=== PATIENT | male | born 1935 | race Caucasian/White ===

== ENCOUNTER 2017-07-30 10:14 | Inpatient (IN) | payer OTHER ==
[~2017-07-30] VITALS: Ht 175.3 cm; Wt 112.0 kg
[~2017-07-30 10:14] MED LIST: ACET-1311 PO; ALBU1AER9 INH; CLOTCRE33 TOP; FLUO0.0543 TD; FURO80TA63 PO; HYDR1CRE TOP; INSDGI SC; INSU70IN2 SC; KETO2SHA5 TOP; MAGNSUS5 PO; MENTOIN TOP; METO25TA56 PO; PRAM1AER PR; RISP1TAB68 PO
--- NOTE | 2017-07-30 11:13 | DIAGNOSTIC IMAGING REPORT ---
CHEST ONE VIEW PORTABLE CLINICAL HISTORY: Shortness of breath. COMPARISON STUDY: Chest radiograph December 25, 2015. FINDINGS: There is no pneumothorax. No definite pleural effusion is noted. Apparent right pleural opacity may reflect extrapleural fat. This is unchanged. Moderate cardiomegaly is unchanged. Apparent hazy left basilar opacity is likely artifactual. There is mild interstitial thickening. IMPRESSION: 1. Mild interstitial thickening. This favors pulmonary vascular congestion/mild pulmonary edema however an infectious process could appear similar. 2. Stable cardiomegaly. Electronically signed by: Modesto Johnston M.D. 07/30/2017 11:12 AM Dictated Date/Time: 07/30/2017 11:10 AM
[2017-07-30 11:25] LABS: BASO % 0.3 %; BASO ABS # 0.02 K/uL (0-0.2); COMPLETE YES; EOS % 2.3 %; HEMATOCRIT 33.1 % (42-52); IG% 0.3 %; MEAN CORPUSCULAR HEMOGLOBIN 33.5 pg (25-34); MEAN CORPUSCULAR HGB CONC 33.5 g/dl (32-36); MEAN PLATELET VOLUME 9.7 fL (7.4-10.4); MONO % 13.8 %; NEUT % 64.3 %; PLATELET COUNT 106 K/uL (130-400); RED BLOOD COUNT 3.31 M/uL (4.7-6.1); WHITE BLOOD COUNT 7.37 K/uL (4.8-10.8)
[2017-07-30 11:42] LABS: CREATININE 2.68 mg/dl (0.60-1.40); POTASSIUM 4.4 mmol/L (3.5-5.1)
[2017-07-30] MEDS ORDERED: ASPIRIN 81 MG CHEW PO STA (11:58)
[2017-07-30] MEDS ORDERED: IPRA1AER2 INH (12:20)
[2017-07-30] MEDS ORDERED: SPIR25TA PO (12:22)
[2017-07-30] MEDS ORDERED: ARTIOIN OPL (12:22)
[2017-07-30] MEDS ORDERED: ACETAMINOPHEN 325 MG TAB PO PRN (13:45)
[2017-07-30] MEDS ORDERED: HydrALAZINE HCL 20 MG/ML VIAL IV. PRN (14:00)
[2017-07-30] MEDS ORDERED: FUROSEMIDE 40 MG/4 ML VIAL ONE (14:01)
[2017-07-30] MEDS ORDERED: INSU70IN2 SC (14:02)
--- NOTE | 2017-07-30 14:31 | History and Physical ---
History & Physical Date & Time of Service: Jul 30, 2017 at 13:26 Chief Complaint: EDEMA Primary Care Physician: Dulce Maria Agustin C.R.N.P. History of Present Illness Mr. Medellin is not a good historian but states that he is here for leg swelling. He denies sob or chest pain. He is audibly wheezing in the room and has a moist sounding cough. I did speak to his sister who is next of kin who confirmed his DNR status and Pmhx of paranoid schizophrenia, DMII and CKD V. He has been on hospice in the past in 2014 for failing kidneys. ROS Constitutional: no chills, aches, sweats or fever Respiratory: see HPI Cardiac: no chest pain, palpitations, edema, orthopnea or lightheadedness GI: no abdominal pain, nausea, vomiting, diarrhea or constipation : no dysuria or hesitancy Extremities: no joint pain or weakness Skin: no rash Past Medical/Surgical History Medical Problems: (1) Cataract Status: Resolved (2) Hip fracture Status: Resolved (3) Hyperlipidemia Status: Resolved (4) Hypertension Status: Chronic (5) Hypokalemia Status: Resolved (6) Paranoid schizophrenia Status: Chronic (7) Peripheral vascular disease Status: Chronic (8) Type 2 diabetes mellitus Status: Chronic Family History Insignificant due to advanced age Social History Smoking Status: Former Smoker Marital Status: single [facility] status[facility] Occupational Status: retired Immunizations History of Influenza Vaccine: Yes History of Tetanus Vaccine?: Unknown History of Pneumococcal: Unknown History of Hepatitis B Vaccine: Unknown Allergies Coded Allergies: No Known Allergies (Unverified , 07/30/17) Home Medications Scheduled Acetaminophen (Tylenol), 650 MG PO BID PRN Artificial Tears Oph Oint (Lacri-Lube Sop Oph Oint), 0.25-0.5 INCH OPL QAM Clotrimazole W/ Betamethasone (Lotrisone), 1 APPLN TOP BID Fluocinonide 0.05% (Lidex 0.05%), 1 APPLN TD BID Furosemide (Lasix), 40 MG PO BID Hydrocortisone/Pramoxine (Proctofoam Hc), 1 APPLN OR PRN Insulin Glargine (Lantus), 40 UNITS SC DAILY Insulin Isophan/Regular (Novolin 70/30), 20 UNITS SC QAM Insulin Isophan/Regular (Novolin 70/30), 30 UNITS SC QDD Ipratropium-Albuterol (Combivent Respimat), 1 PUFFS INH QID Ketoconazole (Topical) (Nizoral), 1 APPLN TOP 3XWK Menthol-Zinc Oxide (Calmoseptine), 1 APPLN TOP DAILY Metoprolol Tartrate (Lopressor) (Lopressor), 12.5 MG PO BID Risperidone (Risperdal), 0.5 MG PO HS Spironolactone (Aldactone), 25 MG PO QAM Scheduled PRN Hydrocortisone (Topical) (Preparation H Hydrocortis), 1 APPLN TOP TID PRN for hemorrhoid Physical Exam Vital Signs Date Time Temp Pulse Resp B/P (MAP) Pulse Ox O2 Delivery O2 Flow Rate FiO2 07/30/17 13:21 75 07/30/17 12:29 84 22 147/69 95 Room Air 07/30/17 12:13 81 18 149/82 07/30/17 11:19 36.6 83 18 155/88 97 Room Air 07/30/17 10:36 72 07/30/17 10:22 36.6 77 18 166/71 97 Room Air General: no distress Eyes: normal inspection, PERLL Respiratory: chest non tender, coarse bases, expiratory wheezes throughout, no respiratory distress, no accessory muscle use Cardiac: regular rate and rhythm, no rub or gallop, no murmur, +2 pitting edema lower extremities GI/: active bowel sounds, no abd pain or tenderness, soft, non distended Extremities: normal range of motion, normal strength, non tender Neuro/Psych: alert and oriented to person and time, normal mood and affect Skin: reddened lower extremities dry Diagnostics Laboratory Results Results Past 24 Hours Test 07/30/17 11:05 Range/Units White Blood Count 7.37 4.8-10.8 K/uL Red Blood Count 3.31 4.7-6.1 M/uL Hemoglobin 11.1 14.0-18.0 g/dL Hematocrit 33.1 42-52 % Mean Corpuscular Volume 100.0 80-100 fL Mean Corpuscular Hemoglobin 33.5 25-34 pg Mean Corpuscular Hemoglobin Concent 33.5 32-36 g/dl Platelet Count 106 130-400 K/uL Mean Platelet Volume 9.7 7.4-10.4 fL Neutrophils (%) (Auto) 64.3 % Lymphocytes (%) (Auto) 19.0 % Monocytes (%) (Auto) 13.8 % Eosinophils (%) (Auto) 2.3 % Basophils (%) (Auto) 0.3 % Neutrophils # (Auto) 4.74 1.4-6.5 K/uL Lymphocytes # (Auto) 1.40 1.2-3.4 K/uL Monocytes # (Auto) 1.02 0.11-0.59 K/uL Eosinophils # (Auto) 0.17 0-0.5 K/uL Basophils # (Auto) 0.02 0-0.2 K/uL RDW Standard Deviation 49.9 36.4-46.3 fL RDW Coefficient of Variation 13.7 11.5-14.5 % Immature Granulocyte % (Auto) 0.3 % Immature Granulocyte # (Auto) 0.02 0.00-0.02 K/uL Sodium Level 138 136-145 mmol/L Potassium Level 4.4 3.5-5.1 mmol/L Chloride Level 104 98-107 mmol/L Carbon Dioxide Level 27 21-32 mmol/L Anion Gap 7.0 3-11 mmol/L Blood Urea Nitrogen 51 7-18 mg/dl Creatinine 2.68 0.60-1.40 mg/dl Est Creatinine Clear Calc Drug Dose 26.8 ml/min Estimated GFR () 24.6 Estimated GFR (Non- 21.2 BUN/Creatinine Ratio 19.0 10-20 Random Glucose 133 70-99 mg/dl Calcium Level 9.0 8.5-10.1 mg/dl Total Bilirubin 0.4 0.2-1 mg/dl Direct Bilirubin 0.1 0-0.2 mg/dl Aspartate Amino Transf (AST/SGOT) 46 15-37 U/L Alanine Aminotransferase (ALT/SGPT) 49 12-78 U/L Alkaline Phosphatase 92 45-117 U/L Troponin I 0.137 0-0.045 ng/ml Pro-B-Type Natriuretic Peptide 585 0-1800 pg/ml Total Protein 7.1 6.4-8.2 gm/dl Albumin 2.6 3.4-5.0 gm/dl Lipase 298 73-393 U/L Diagnostic Radiology CHEST ONE VIEW PORTABLE CLINICAL HISTORY: Shortness of breath. COMPARISON STUDY: Chest radiograph December 25, 2015. FINDINGS: There is no pneumothorax. No definite pleural effusion is noted. Apparent right pleural opacity may reflect extrapleural fat. This is unchanged. Moderate cardiomegaly is unchanged. Apparent hazy left basilar opacity is likely artifactual. There is mild interstitial thickening. IMPRESSION: 1. Mild interstitial thickening. This favors pulmonary vascular congestion/mild pulmonary edema however an infectious process could appear similar. 2. Stable cardiomegaly. EKG Normal sinus rhythm ST & T wave abnormality, consider lateral ischemia Abnormal ECG When compared with ECG of 25-DEC-2015 12:19, No significant change was found Impression Assessment and Plan Mr. Medellin is an 81 year old man here for CHF exacerbation. Unknown type CHF exacerbation - admit tele - IV lasix, solumedrol, qid nebs and prn, continue spironolactone - strict Is&Os, daily weights - Currently on RA, O2 per protocol. - Echo Elevated trop, EKG abnormality - not currently experiencing chest pain - trend troponins - EKG in the mornings and with CP - consulted cardiology - continue metoprolol - start aspirin CKD V - Creat 2.6, has been has high as 4 in the past - trend prp while diuresing, may need to get nephrology on board DM II - home dose lantus - ss - bsg ac & hs Paranoid Schizophrenia - continue risperdone I personally interviewed and examined the patient. I agree with history of present illness and physical exam mentioned above, I also performed my own history taking and examination. Past medical history and review of system has been obtained by myself I reviewed all pertinent labs and studies Reviewed current medications I discussed and formulated of the assessment and plan mentioned above by Mrs. Maldonadoah Larry Please refer to the Summary mentioned below. General Appearance: not in acute distress Eyes: normal Sclerae, extraocular muscle intact ENT: hearing grossly normal Neck: supple Respiratory/Chest: Decreased air entry bilateral , mild respiratory distress, no accessory muscle use, bilateral scattered rhonchi Cardiovascular: regular rate, rhythm, + systolic murmur Abdomen: non tender, soft, no masses, but appears distended Extremities: +2 edema Neurologic/Psychiatric: Awake alert oriented only to place and person moves all extremities sensation intact cranial nerves II-12 appear to be intact Skin: normal color, warm/dry, no rash 81 years old man with underlying dementia presented to the ED with shortness of breath and lower extremity edema Assessment Acute and chronic CHF unspecified type Shortness of breath/bronchospasm possible cardiac Positive troponin likely demand ischemia Chronic kidney disease stage IV, creatinine still 0.6 baseline Diabetes mellitus type 2 insulin-requiring Paranoid schizophrenia Plan Admit to telemetry Trend troponin Consult property management accountant Obtain 2-D echo Sliding scale Continue home meds Gentle diuresis with close monitoring renal function Calculation of I/O DVT prophylaxis Bronchodilators Darya Torres [facility], [facility] Advanced Directives Existing Advance Directive: No Existing Living Will: No Existing Power of Ict Customer Support Officer: No Existing Health Care Proxy: No Resuscitation Status DO NOT RESUSCITATE (per family and document from last admission) VTE Prophylaxis VTE Risk Assessment Done? Y/N: Yes Risk Level: Moderate Given or contraindicated: Unfractionated heparin SQ
[2017-07-30 15:10] VITALS: BP 177/74; PULSE 77; TEMP 36.4; O2SAT 97; Ht 175.3 cm; Wt 112.0 kg
[2017-07-30] MEDS ORDERED: FUROSEMIDE INJ 40 MG in SYRINGE 0 ML IV ONE (16:00)
[2017-07-30] MEDS ORDERED: GLUCOSE 10 TABS/TUBE PO PRN (16:00)
[2017-07-30] MEDS ORDERED: ALBUT/IPRATROP 3MG/0.5MG NEB 3 ML VIAL INH SCH (16:00)
[2017-07-30] MEDS ORDERED: GLUCAGON FOR INJ 1 MG VIAL SQ PRN (16:00)
[2017-07-30] MEDS ORDERED: METHYLPREDNISOLONE IV 40 MG in SYRINGE 0 ML IV ONE (16:00)
[2017-07-30] MEDS ORDERED: GLUCOSE 40% GEL 15 GM TUBE PO PRN (16:00)
[2017-07-30] MEDS ORDERED: DEXTROSE 50% 50 ML SYR IV PRN (16:00)
--- NOTE | 2017-07-30 16:00 | EMERGENCY ROOM VISIT NOTE ---
History Report prepared by Anna: Dayami Shelton Under the Supervision of: Dr. Casey Wade D.O. First contact with patient: 10:30 Chief Complaint: REFERRED BY DOCTOR Stated Complaint: EDEMA History of Present Illness The patient is a 81 year old male who presents to the Emergency Room with complaints of worsening swelling to his legs. He was brought to the ED via EMS from [facility] where he resides. EMS reports the patient has had swelling of his bilateral legs and was placed on IV Lasix. When the swelling did not improve , his doctor referred him here to the ED. The patient also complains of shortness of breath that is worse with exertion. He denies any chest pain. Additional information is unable to be obtained secondary to patients mental status. Source of History: patient, EMS Onset: AIRPLANE CAPTAIN Position: leg (bilateral) Quality: other (swelling) Timing: worsening Associated Symptoms: + SOB, No chest pain Review of Systems See HPI for pertinent positives & negatives. ROS is limited secondary to patients mental status. Past Medical & Surgical Medical Problems: (1) Cataract (2) CHF exacerbation (3) Hip fracture (4) Hyperlipidemia (5) Hypertension (6) Hypokalemia (7) Paranoid schizophrenia (8) Peripheral vascular disease (9) Type 2 diabetes mellitus Family History Insignificant due to advanced age Social History Smoking Status: Former Smoker Alcohol Use: none Drug Use: none Marital Status: single Housing Status: [facility] Occupation Status: retired Current/Historical Medications Scheduled Acetaminophen (Tylenol), 650 MG PO BID PRN Artificial Tears Oph Oint (Lacri-Lube Sop Oph Oint), 0.25-0.5 INCH OPL QAM Clotrimazole W/ Betamethasone (Lotrisone), 1 APPLN TOP BID Fluocinonide 0.05% (Lidex 0.05%), 1 APPLN TD BID Furosemide (Lasix), 40 MG PO BID Hydrocortisone/Pramoxine (Proctofoam Hc), 1 APPLN OR PRN Insulin Glargine (Lantus), 40 UNITS SC DAILY Insulin Isophan/Regular (Novolin 70/30), 20 UNITS SC QAM Insulin Isophan/Regular (Novolin 70/30), 30 UNITS SC QDD Ipratropium-Albuterol (Combivent Respimat), 1 PUFFS INH QID Ketoconazole (Topical) (Nizoral), 1 APPLN TOP 3XWK Menthol-Zinc Oxide (Calmoseptine), 1 APPLN TOP DAILY Metoprolol Tartrate (Lopressor) (Lopressor), 12.5 MG PO BID Risperidone (Risperdal), 0.5 MG PO HS Spironolactone (Aldactone), 25 MG PO QAM Scheduled PRN Hydrocortisone (Topical) (Preparation H Hydrocortis), 1 APPLN TOP TID PRN for hemorrhoid Allergies Coded Allergies: No Known Allergies (Unverified , 07/30/17) Physical Exam Vital Signs Date Time Temp Pulse Resp B/P (MAP) Pulse Ox O2 Delivery O2 Flow Rate FiO2 07/30/17 13:42 71 22 171/63 97 Room Air 07/30/17 13:21 75 07/30/17 12:29 84 22 147/69 95 Room Air 07/30/17 12:13 81 18 149/82 07/30/17 11:19 36.6 83 18 155/88 97 Room Air 07/30/17 10:36 72 07/30/17 10:22 36.6 77 18 166/71 97 Room Air Physical Exam GENERAL: Sitting up in bed, reserved, intermittently answering questions. EYE EXAM: normal conjunctiva. OROPHARYNX: no exudate, no erythema, lips, buccal mucosa, and tongue normal and mucous membranes are moist NECK: supple, no nuchal rigidity, no adenopathy, non-tender, no JVD LUNGS: Diminished lung sounds bilaterally. Normal chest wall mechanics HEART: no murmurs, S1 normal and S2 normal ABDOMEN: abdomen soft, non-tender, normo-active bowel sounds, no masses, no rebound or guarding. BACK: Back is symmetrical on inspection and there is no deformity, no midline tenderness, no CVA tenderness. SKIN: no rashes and no bruising UPPER EXTREMITIES: upper extremities are grossly normal. LOWER EXTREMITIES: Pitting edema tracking to bilateral hips. NEURO EXAM: Normal sensorium, cranial nerves II-XII grossly intact, normal speech, no gross weakness of arms, no gross weakness of legs. Gross sensation intact. Medical Decision & Procedures ER Provider Diagnostic Interpretation: Radiology results as stated below per my review and the radiologist's interpretation: CHEST ONE VIEW PORTABLE CLINICAL HISTORY: Shortness of breath. COMPARISON STUDY: Chest radiograph December 25, 2015. FINDINGS: There is no pneumothorax. No definite pleural effusion is noted. Apparent right pleural opacity may reflect extrapleural fat. This is unchanged. Moderate cardiomegaly is unchanged. Apparent hazy left basilar opacity is likely artifactual. There is mild interstitial thickening. IMPRESSION: 1. Mild interstitial thickening. This favors pulmonary vascular congestion/mild pulmonary edema however an infectious process could appear similar. 2. Stable cardiomegaly. Electronically signed by: Modesto Johnston M.D. 07/30/2017 11:12 AM Laboratory Results 07/30/17 11:05 Red Blood Count 3.31, Mean Corpuscular Volume 100.0, Mean Corpuscular Hemoglobin 33.5, Mean Corpuscular Hemoglobin Concent 33.5, Mean Platelet Volume 9.7, Neutrophils (%) (Auto) 64.3, Lymphocytes (%) (Auto) 19.0, Monocytes (%) ( Auto) 13.8, Eosinophils (%) (Auto) 2.3, Basophils (%) (Auto) 0.3, Neutrophils # (Auto) 4.74, Lymphocytes # (Auto) 1.40, Monocytes # (Auto) 1.02, Eosinophils # ( Auto) 0.17, Basophils # (Auto) 0.02 07/30/17 11:05 Test 07/30/17 11:05 White Blood Count 7.37 K/uL (4.8-10.8) Red Blood Count 3.31 M/uL (4.7-6.1) Hemoglobin 11.1 g/dL (14.0-18.0) Hematocrit 33.1 % (42-52) Mean Corpuscular Volume 100.0 fL (80-100) Mean Corpuscular Hemoglobin 33.5 pg (25-34) Mean Corpuscular Hemoglobin Concent 33.5 g/dl (32-36) Platelet Count 106 K/uL (130-400) Mean Platelet Volume 9.7 fL (7.4-10.4) Neutrophils (%) (Auto) 64.3 % Lymphocytes (%) (Auto) 19.0 % Monocytes (%) (Auto) 13.8 % Eosinophils (%) (Auto) 2.3 % Basophils (%) (Auto) 0.3 % Neutrophils # (Auto) 4.74 K/uL (1.4-6.5) Lymphocytes # (Auto) 1.40 K/uL (1.2-3.4) Monocytes # (Auto) 1.02 K/uL (0.11-0.59) Eosinophils # (Auto) 0.17 K/uL (0-0.5) Basophils # (Auto) 0.02 K/uL (0-0.2) RDW Standard Deviation 49.9 fL (36.4-46.3) RDW Coefficient of Variation 13.7 % (11.5-14.5) Immature Granulocyte % (Auto) 0.3 % Immature Granulocyte # (Auto) 0.02 K/uL (0.00-0.02) Anion Gap 7.0 mmol/L (3-11) Est Creatinine Clear Calc Drug Dose 26.8 ml/min Estimated GFR () 24.6 Estimated GFR (Non- 21.2 BUN/Creatinine Ratio 19.0 (10-20) Calcium Level 9.0 mg/dl (8.5-10.1) Total Bilirubin 0.4 mg/dl (0.2-1) Direct Bilirubin 0.1 mg/dl (0-0.2) Aspartate Amino Transf (AST/SGOT) 46 U/L (15-37) Alanine Aminotransferase (ALT/SGPT) 49 U/L (12-78) Alkaline Phosphatase 92 U/L (45-117) Troponin I 0.137 ng/ml (0-0.045) Pro-B-Type Natriuretic Peptide 585 pg/ml (0-1800) Total Protein 7.1 gm/dl (6.4-8.2) Albumin 2.6 gm/dl (3.4-5.0) Lipase 298 U/L (73-393) Laboratory results per my review. Medications Administered Medications (Trade) Dose Ordered Sig/Terese Route Start Time Stop Time Status Last Admin Dose Admin Aspirin (Aspirin Chew) 324 mg NOW STAT PO 07/30/17 11:58 07/30/17 11:59 DC 07/30/17 11:58 324 MG ECG Indication: SOB/dyspnea Rate (beats per minute): 74 Rhythm: sinus rhythm Findings: nonspecific-ST abn (Lateral and high lateral leads with flipped T- waves in high lateral leads), left axis deviation Comparison ECG Date: new changes in lateral and high lateral leads when compared to EKG from 12/25/2015 ED Course ED COURSE: Vital signs were reviewed and showed the patient is hypertensive. The patients medical record was reviewed The above diagnostic studies were performed and reviewed. ED treatments and interventions as stated above. 1036: The patient was evaluated in room C6. A complete history and physical examination was performed. 1104: I spoke to Mary at [facility]. She states the patient had significant shortness of breath this morning. His pulse ox was 90 on room air so they called an ambulance to bring him to the ED. 1158: Aspirin 324 mg PO. 1209: I discussed the patients case with Dr. Nava [facility] Hospitalist. The patient will be further evaluated. 1213: I discussed the patients case with Dr. Jimenez [facility] Cardiology. The patient will be further evaluated. 1225: Upon reevaluation, the patient is resting comfortably. I discussed my findings with the patient and he understands and agrees with the treatment plan. Based on the patients age, coexisting illnesses, exam and lab findings the decision to treat as an inpatient was made. The patient remained stable while under my care. The patient will be evaluated for further management. Medical Decision Differential diagnoses includes but is not limited to pneumonia, bronchitis, COPD/Asthma exacerbation, pneumothorax, pulmonary embolism, congestive heart failure, acute coronary syndrome. Patient is an 81-year-old male who presents to ER for [facility]ness [facility] the [facility] which is present for the past several days. Patient is an extremely poor historian and is only able to tell me that he is short of breath. He has no other complaints per him. On exam he does have pitting edema. EKG shows new flipped T waves in the high lateral leads. Chest x-ray supports some vascular congestion. Troponin was elevated. Patient was updated at bedside in regards to his findings. I favor symptoms are likely secondary to failure to cannot be certain due to his limited history. Discussed with cardiology. Patient was admitted to internal medicine for further workup. Medication Reconcilliation Current Medication List: was personally reviewed by me Blood Pressure Screening Patient's blood pressure: Elevated blood pressure Blood pressure disposition: Referred to PCP Consults Time Called: 1207 Consulting Physician: Dr. Nava [facility] Hospitalist Returned Call: 1209 I discussed the patients case with Dr. Nava [facility] Hospitalist. The patient will be further evaluated. Additional Consults: Time Called: 1211 Consulted Physician: Dr. Jimenez [facility] Cardiology Returned Call: 1213 Additional Comments: I discussed the patients case with Dr. Jimenez, [facility] Cardiology. The patient will be further evaluated. Impression Primary Impression: Dyspnea Additional Impressions: Acute electrocardiogram changes CHF exacerbation CKD stage G5/A2, GFR <15 and albumin creatinine ratio 30- 299 mg/g Scribe Attestation The scribe's documentation has been prepared under my direction and personally reviewed by me in its entirety. I confirm that the note above accurately reflects all work, treatment, procedures, and medical decision making performed by me. Departure Information Dispostion Being Evaluated By Hospitalist Maria M Cardenas M.D. (PCP) Patient Instructions [facility] Problem Qualifiers Primary Impression: Dyspnea Dyspnea type: unspecified Qualified Codes: R06.00 - Dyspnea, unspecified Additional Impressions: CHF exacerbation Congestive heart failure type: unspecified congestive heart failure type Qualified Codes: I50.9 - Heart failure, unspecified
[2017-07-30] MEDS: INSULIN ASPART 100 UNITS/ML 3 ML PEN SC SCH ×2 (16:15→20:58)
--- NOTE | 2017-07-30 17:11 | Cardiology Consultation ---
Cardiology Consultation Date of Consultation: Jul 30, 2017. Requesting Physician: Susana Reason for Consultation: NSTEMI Pt evaluation today including: conversation w/ patient, physical exam, chart review, lab review, review of studies, review of inpatient medication list, conversation w/ attending History of Present Illness The patient is an 81-year-old gentleman without a known history of cardiac disease who suffers from paranoid schizophrenia. He is also known to have an element of renal insufficiency. He currently resides at a nursing facility. He was noted recently to have worsening lower extremity edema that did not respond to oral Lasix. He was therefore sent to [facility] for an evaluation. Based on his physical examination and laboratory findings he was admitted for additional treatment. The patient currently claims to be feeling well. He did not verbalize any complaints. He denied chest discomfort or chest pressure. He claims to be an active individual was able to ambulate without limitation and denies any exertional symptoms. He is not perform vigorous exercise. He denies significant breathing trouble. He denies current breathing trouble. He denies any sense of palpitation. He denies any pain in his lower extremities. Claims to be eating well. He denied any dizziness or lightheadedness. He cannot recall having a syncopal episode. Past Medical/Surgical History Paranoid schizophrenia Chronic renal insufficiency stage IV Dementia Diabetes mellitus Family History Insignificant due to advanced age Noncontributory given his advanced age Social History Smoking Status: Former Smoker History of Alcohol Use: No Currently resides at a nursing facility Review of Systems Per HPI. Additional review of systems was difficult to obtain due to his mental illness Allergies Coded Allergies: No Known Allergies (Unverified , 07/30/17) Medications Current Inpatient Medications Medications (Trade) Dose Ordered Sig/Terese Route Start Time Stop Time Status Last Admin Dose Admin Acetaminophen (Tylenol Tab) 650 mg Q4H PRN PO 07/30/17 13:45 08/29/17 13:44 Furosemide 40 mg/ Syringe 4 ml @ 4 mls/min BID IV 07/30/17 21:00 08/29/17 20:59 Albuterol/ Ipratropium (Duoneb) 3 ml QIDR INH 07/30/17 16:00 08/29/17 15:59 Methylprednisolone Sodium Succinate 40 mg/Syringe 0.64 ml @ 1.5 mls/min BID IV 07/30/17 21:00 08/29/17 20:59 Hydralazine HCl (HydrALAZINE INJ) 10 mg Q4H PRN IV. 07/30/17 14:00 08/29/17 13:59 Insulin Aspart (novoLOG ASPART) SLIDING SCALE If C... ACHS SC 07/30/17 16:15 08/29/17 16:14 Artificial Tears (Lacri-Lube Oph Oint) 1 appln QAM OPL 07/31/17 09:00 08/30/17 08:59 Insulin Glargine (Lantus Solostar Pen) 40 units DAILY SC 07/31/17 09:00 08/30/17 08:59 Metoprolol Tartrate (Lopressor Tab) 12.5 mg BID PO 07/30/17 21:00 08/29/17 20:59 Risperidone (Risperdal Tab) 0.5 mg HS PO 07/30/17 21:00 08/29/17 20:59 Spironolactone (Aldactone Tab) 25 mg QAM PO 07/31/17 09:00 08/30/17 08:59 Heparin Sodium (Porcine) (Heparin Sq 5000 Unit/0.5ml) 5,000 unit Q12 SQ 07/30/17 21:00 08/29/17 20:59 UNV Aspirin (Ecotrin Tab) 81 mg QAM PO 07/31/17 09:00 08/30/17 08:59 Glucose (Glucose 40% Gel) 15-30 GRAMS 15 GRAMS... UD PRN PO 07/30/17 16:00 08/29/17 15:59 Glucose (Glucose Chew Tab) 4-8 Tablets 4 Tabl... UD PRN PO 07/30/17 16:00 08/29/17 15:59 Dextrose (Dextrose 50% 50ML Syringe) 25-50ML OF 50% DW IV FOR... UD PRN IV 07/30/17 16:00 08/29/17 15:59 Glucagon (Glucagon Inj) 1 mg UD PRN SQ 07/30/17 16:00 08/29/17 15:59 Miscellaneous (Xopenex/ Atrovent Neb) 1 ea Q6R INH 07/30/17 21:00 08/29/17 20:59 UNV Physical Exam Vital Signs Past 12 Hours Date Time Temp Pulse Resp B/P (MAP) Pulse Ox O2 Delivery O2 Flow Rate FiO2 07/30/17 15:10 36.4 77 20 177/74 97 Room Air 07/30/17 15:10 97 Room Air 07/30/17 14:56 76 20 157/76 94 07/30/17 14:08 73 22 145/68 98 Room Air 07/30/17 13:42 71 22 171/63 97 Room Air 07/30/17 13:21 75 07/30/17 12:29 84 22 147/69 95 Room Air 07/30/17 12:13 81 18 149/82 07/30/17 11:19 36.6 83 18 155/88 97 Room Air 07/30/17 10:36 72 07/30/17 10:22 36.6 77 18 166/71 97 Room Air The patient is alert and oriented. Mood and affect were flat He answered all questions appropriately. HEENT: Pupils are equal and reactive to light and accommodation. Extraocular movements are intact. The sclerae are anicteric. Neuro: Cranial nerves intact Neck: Patient's neck is supple. He has palpable carotid pulses bilaterally without bruits on auscultation. I could not evaluate for jugular venous distention given the redundant nature of his neck tissue. The thyroid is not enlarged. Lungs: Clear to auscultation bilaterally. He has good air movement without use of accessory muscles. No rales wheezes or rhonchi. Cardiac: Heart demonstrates a regular rate and rhythm. Normal S1 and S2. No murmurs on examination. Pulses: The patient has palpable radial pulses bilaterally that are equal in intensity Extremities: There was no evidence of hypoperfusion. There is no cyanosis or clubbing. There is no edema he has moderate bilateral peripheral edema in the lower extremities. There is an element of erythema on the anterior aspect of both legs. Skin: Patient does have an erythematous and raised rash underneath his neck Data Laboratory Results: Last 24 Hours Test 07/30/17 11:05 07/30/17 16:25 07/30/17 16:56 White Blood Count 7.37 K/uL Red Blood Count 3.31 M/uL Hemoglobin 11.1 g/dL Hematocrit 33.1 % Mean Corpuscular Volume 100.0 fL Mean Corpuscular Hemoglobin 33.5 pg Mean Corpuscular Hemoglobin Concent 33.5 g/dl Platelet Count 106 K/uL Mean Platelet Volume 9.7 fL Neutrophils (%) (Auto) 64.3 % Lymphocytes (%) (Auto) 19.0 % Monocytes (%) (Auto) 13.8 % Eosinophils (%) (Auto) 2.3 % Basophils (%) (Auto) 0.3 % Neutrophils # (Auto) 4.74 K/uL Lymphocytes # (Auto) 1.40 K/uL Monocytes # (Auto) 1.02 K/uL Eosinophils # (Auto) 0.17 K/uL Basophils # (Auto) 0.02 K/uL RDW Standard Deviation 49.9 fL RDW Coefficient of Variation 13.7 % Immature Granulocyte % (Auto) 0.3 % Immature Granulocyte # (Auto) 0.02 K/uL Sodium Level 138 mmol/L Potassium Level 4.4 mmol/L Chloride Level 104 mmol/L Carbon Dioxide Level 27 mmol/L Anion Gap 7.0 mmol/L Blood Urea Nitrogen 51 mg/dl Creatinine 2.68 mg/dl Est Creatinine Clear Calc Drug Dose 26.8 ml/min Estimated GFR () 24.6 Estimated GFR (Non- 21.2 BUN/Creatinine Ratio 19.0 Random Glucose 133 mg/dl Calcium Level 9.0 mg/dl Total Bilirubin 0.4 mg/dl Direct Bilirubin 0.1 mg/dl Aspartate Amino Transf (AST/SGOT) 46 U/L Alanine Aminotransferase (ALT/SGPT) 49 U/L Alkaline Phosphatase 92 U/L Troponin I 0.137 ng/ml Pro-B-Type Natriuretic Peptide 585 pg/ml Total Protein 7.1 gm/dl Albumin 2.6 gm/dl Lipase 298 U/L Bedside Glucose 110 mg/dl Imaging: Vascular prominence suggestive of early pulmonary edema EKG: Normal sinus rhythm with T-wave inversions in 1 and aVL Assessment & Plan 1. Edema: Patient certainly has an element of peripheral edema likely some element pulmonary vascular congestion. He is not appear to be overtly symptomatic from a cardiac standpoint but certainly has worsening peripheral edema. He is reported to have a history of a cardiomyopathy that is not well characterized in his medical record. At this point would seem reasonable to attempt more aggressive diuresis with intravenous diuretics. His renal function appears to be close to baseline as he has had much worse renal function in the past. I agree with assessment of his left ventricular function. If he indeed has an element of reduced LV systolic function we could entertain a change from his metoprolol tartrate to succinate. He is not appear to be a good candidate for Hernando inhibition given his renal disease. He is on spironolactone and is generally maintained on an element of loop diuretic as well. His blood pressure is also notably elevated today and he may require more aggressive control of hypertension in order to optimize his cardiac function. Additional recommendations will follow the results of his echocardiogram. 2. Elevated cardiac biomarkers: Patient does have slightly elevated troponin. This may be chronic in nature or related to his chronic renal insufficiency. He does not give a history supportive of an acute coronary event. However, he provide little history in general. His EKG he has some minor T-wave inversions but no signs of overt ischemia. I think we can trend his markers over the course of the evening for better determination on the chronicity. He has been administered aspirin since admission. I do not feel there is any need for systemic anticoagulation based on the objective findings and lack of symptoms currently. Once again, maintaining him on a beta-hira and attempting to optimize his blood pressure control is recommended.
[2017-07-30 17:18] LABS: PROTHROMBIN TIME (PATIENT) 10.8 SECONDS (9.0-12.0)
[2017-07-30 17:35] LABS: CHOLESTEROL/HDL RATIO 3.5
[2017-07-30 18:12] LABS: URINE APPEARANCE CLEAR (CLEAR); URINE BILIRUBIN NEG (NEG); URINE COLOR YELLOW; URINE EPITHELIAL CELL AUTO 0-5 /lpf (0-5); URINE NITRITE NEG (NEG); URINE PH 5.5 (4.5-7.5); URINE SPECIFIC GRAVITY 1.012 (1.000-1.030); UROBILINOGEN NEG (NEG); ZZUR CULT IF INDIC CLEAN CATCH NO
[2017-07-30 18:13] LABS: MANUAL MICROSCOPIC REQUIRED? NO; REVIEW REQ? NO
--- NOTE | 2017-07-30 18:35 | ECHOCARDIOGRAM REPORT ---
*NOTICE TO RECEIVING [employer] This information is strictly Confidential and protected under [place] law. [place] law prohibits you from making any further disclosure of this information unless further disclosure is expressly permitted by the written consent of the person to whom it pertains or is authorized by law. A general authorization for the release of medical or other information is not sufficient for this purpose. Hospital accepts no responsibility if the information is made available to any other person, INCLUDING THE PATIENT. Interpretation Summary * Name: MARY ANNE VALLE Study Date: 07/30/2017 03:42 PM BP: 177/74 mmHg * Patient Location: C.2T\S\S239\S\2 HR: 77 * : 1935 (M/d/y) Gender: Male Height: 69 in * Age: 81 yrs Ethnicity: CA Weight: 257 lb * Ordering Physician: Andie Juarez * Referring Physician: UNKNOWN * Performed By: Lanie Booth RCS * * Reason For Study: CHF * BSA: 2.3 m2 * -- Conclusions -- * Left ventricular systolic function is normal. * Grade I diastolic dysfunction, (abnormal relaxation pattern). * No significant valvular abnormalities Procedure Details * A complete two-dimensional transthoracic echocardiogram was performed (2D, M-mode, Doppler and color flow Doppler). * The study was technically difficult. * There were technical limitations due to patient's supine positioning for imagining and body habitus * A contrast injection of Definity was performed to improve assessment of LV function. * Contrast was injected into an intravenous site in the right arm. * One vial of Definity ultrasound contrast was diluted in normal saline to a total volume of 10 ml. A total of '1' ml of solution was administered during imaging. * Lot # [id number] of Definity utilized for procedure. * Expiration date . * The attending nurse who injected the contrast agent was Jigna Roy RN. Left Ventricle * The left ventricle is normal in size. * There is normal left ventricular wall thickness. * Left ventricular systolic function is normal. * Ejection Fraction = 55-60%. * Grade I diastolic dysfunction, (abnormal relaxation pattern). * The left ventricular wall motion is normal. Right Ventricle * The right ventricle is normal in size and function. Atria * The left atrial size is normal. * Right atrial size is normal. Mitral Valve * The mitral valve is grossly normal. * Significant mitral regurgitation is absent. Tricuspid Valve * The tricuspid valve is not well visualized. * There is mild tricuspid regurgitation. Aortic Valve * The aortic valve is normal in structure and function. * No hemodynamically significant valvular aortic stenosis. * There is no significant aortic regurgitation. Pericardium/Pleural * There is no pericardial effusion. MMode 2D Measurements and Calculations IVSd 1.1 cm IVSs 1.2 cm LVIDd 4.4 cm LVIDs 2.9 cm LVPWd 1.1 cm LVPWs 1.3 cm IVS/LVPW 10 FS 33.8 % EDV(Teich) 89.7 ml ESV(Teich) 33.3 ml EF(Teich) 62.8 % EDV(cubed) 87.7 ml ESV(cubed) 25.4 ml EF(cubed) 71.0 % % IVS thick 7.0 % % LVPW thick 22.4 % LV mass(C)d 167.0 grams LV mass(C)dI 72.7 grams/m\S\2 LV mass(C)s 111.7 grams LV mass(C)sI 48.6 grams/m\S\2 SV(Teich) 56.4 ml SI(Teich) 24.5 ml/m\S\2 SV(cubed) 62.2 ml SI(cubed) 27.1 ml/m\S\2 EDV(MOD-sp4) 149.2 ml ESV(MOD-sp4) 50.4 ml EF(MOD-sp4) 66.2 % EDV(MOD-sp2) 145.2 ml ESV(MOD-sp2) 48.0 ml EF(MOD-sp2) 66.9 % SV(MOD-sp4) 98.8 ml SI(MOD-sp4) 43.0 ml/m\S\2 SV(MOD-sp2) 97.2 ml SI(MOD-sp2) 42.3 ml/m\S\2 Doppler Measurements and Calculations MV E max dionisio 154.7 cm/sec MV A max dionisio 153.2 cm/sec MV E/A 1.0 MV P1/2t max dionisio 159.2 cm/sec MV P1/2t 84.4 msec MVA(P1/2t) 2.6 cm\S\2 MV dec slope 552.3 cm/sec\S\2 MV dec time 0.35 sec Ao V2 max 168.9 cm/sec Ao max PG 11.4 mmHg Ao max PG (full) 5.6 mmHg LV V1 max PG 5.8 mmHg LV V1 max 120.2 cm/sec
[2017-07-30] MEDS: LEVALBUTEROL 1.25MG/0.5ML NEB INH SCH (19:21)
[2017-07-30] MEDS: IPRATROPIUM BROMIDE NEB SOLN 0.02% 2.5 ML VIAL INH SCH (19:21)
[2017-07-30 19:23] VITALS: PULSE 88; O2SAT 98
[2017-07-30] MEDS: RISPERIDONE 0.5 MG TAB PO SCH (20:02)
[2017-07-30] MEDS: FUROSEMIDE INJ 40 MG in SYRINGE 0 ML IV SCH (20:02)
[2017-07-30] MEDS: METHYLPREDNISOLONE IV 40 MG in SYRINGE 0 ML IV SCH (20:02)
[2017-07-30] MEDS: METOPROLOL TARTRATE 25 MG TAB PO SCH (20:03)
[2017-07-30] MEDS: HEPARIN SOD 5000 UNIT/0.5 ML CARP SQ SCH (20:58)
[2017-07-30] MEDS ORDERED: LEVALBUTEROL/IPRATROPIUM NEB INH SCH (21:00)
[2017-07-30 23:43] VITALS: BP 158/68; PULSE 89; TEMP 36.4; O2SAT 94
[2017-07-31] VITALS (11 sets, daily range): BP systolic 132–158; BP diastolic 69–80; PULSE 69–113; TEMP 36.4–37; O2SAT 93–98
[2017-07-31] MEDS: LEVALBUTEROL 1.25MG/0.5ML NEB INH SCH ×4 (01:47→19:03)
[2017-07-31] MEDS: IPRATROPIUM BROMIDE NEB SOLN 0.02% 2.5 ML VIAL INH SCH ×4 (01:47→19:03)
[2017-07-31 06:29] LABS: COMPLETE YES; HEMATOCRIT 32.2 % (42-52); IG% 0.1 %; LYMPH % 6.6 %; LYMPH ABS # 0.48 K/uL (1.2-3.4); MEAN CELL VOLUME 98.5 fL (80-100); MEAN CORPUSCULAR HEMOGLOBIN 33.6 pg (25-34); MEAN CORPUSCULAR HGB CONC 34.2 g/dl (32-36); MEAN PLATELET VOLUME 9.5 fL (7.4-10.4); MONO % 2.5 %; NEUT % 90.8 %; PLATELET COUNT 100 K/uL (130-400); RED BLOOD COUNT 3.27 M/uL (4.7-6.1); WHITE BLOOD COUNT 7.28 K/uL (4.8-10.8)
[2017-07-31] MEDS: INSULIN ASPART 100 UNITS/ML 3 ML PEN SC SCH ×4 (06:55→21:09)
[2017-07-31 07:00] LABS: BUN/CREATININE RATIO 18.7 (10-20); ESTIMATED AVERAGE GLUCOSE 151 mg/dl; HA1C FLAG Normal (Normal); MAGNESIUM 1.9 mg/dl (1.8-2.4); POTASSIUM 4.7 mmol/L (3.5-5.1)
[2017-07-31 07:03] LABS: ALB/GLOB RATIO 0.6 (0.9-2)
[2017-07-31] MEDS: METHYLPREDNISOLONE IV 40 MG in SYRINGE 0 ML IV SCH (08:19)
[2017-07-31] MEDS: FUROSEMIDE INJ 40 MG in SYRINGE 0 ML IV SCH (08:19)
[2017-07-31] MEDS: ARTIFICIAL TEARS OP OINT 3.5 GM TUBE OPL SCH (08:19)
[2017-07-31] MEDS: ASPIRIN 81 MG ECTAB PO SCH (08:20)
[2017-07-31] MEDS: METOPROLOL TARTRATE 25 MG TAB PO SCH ×2 (08:20→21:07)
[2017-07-31] MEDS: SPIRONOLACTONE 25 MG TAB PO SCH (08:20)
[2017-07-31] MEDS: INSULIN GLARGINE SOLOSTAR 100 UNITS/ML 3 ML PEN SC SCH (08:23)
[2017-07-31] MEDS: HEPARIN SOD 5000 UNIT/0.5 ML CARP SQ SCH (08:23)
[2017-07-31 12:30] LABS: BUN/CREATININE RATIO 18.6 (10-20); CALCIUM 9.2 mg/dl (8.5-10.1); CREATININE 3.32 mg/dl (0.60-1.40); POTASSIUM 4.6 mmol/L (3.5-5.1)
[2017-07-31] MEDS ORDERED: HEPARIN IV BOLUS 7,000 UNIT in SYRINGE 0 ML IV SCH (14:15)
[2017-07-31] MEDS ORDERED: METOPROLOL TARTRATE 25 MG TAB PO ONE (14:22)
[2017-07-31] MEDS: HEPARIN 25,000 UNIT/500ML D5W 500 ML IV PRN (14:47)
[2017-07-31 15:19] LABS: BASO % 0.1 %; BASO ABS # 0.01 K/uL (0-0.2); HEMATOCRIT 32.3 % (42-52); IG% 0.4 %; LYMPH % 5.1 %; LYMPH ABS # 0.67 K/uL (1.2-3.4); MEAN CELL VOLUME 99.4 fL (80-100); MEAN CORPUSCULAR HEMOGLOBIN 33.8 pg (25-34); MONO % 4.9 %; NEUT % 89.5 %; PLATELET COUNT 107 K/uL (130-400); RED BLOOD COUNT 3.25 M/uL (4.7-6.1); WHITE BLOOD COUNT 13.01 K/uL (4.8-10.8)
[2017-07-31] MEDS ORDERED: CLOPIDOGREL BISULFATE 300 MG TAB PO STA (15:25)
[2017-07-31 15:29] LABS: INR 1.1 (0.9-1.1); PROTHROMBIN TIME (PATIENT) 11.6 SECONDS (9.0-12.0)
[2017-07-31 15:35] LABS: COMPLETE YES; MEAN CORPUSCULAR HGB CONC 34.1 g/dl (32-36)
--- NOTE | 2017-07-31 18:20 | Hospitalist Progress Note ---
Hospitalist Progress Note Date of Service Jul 31, 2017. (Acacia Teixeira PA-C) Subjective Pt evaluation today including: conversation w/ patient, conversation w/ family (sister over the phone), physical exam, chart review, lab review, review of studies, conversation w/ [employer] sales consultant (Dr. Jimenez - cardiology), review of inpatient medication list Patient seen and evaluated. No acute events overnight. Has remained in normal sinus rhythm with occasional PVCs in rates of 80s to 90s. Upon admission, patient noted to have a mildly elevated troponin of 0.137 which reduced to 0.120 however then increased to 0.325. Due to this slight increase and anterolateral ischemic changes on EKG a fourth troponin was obtained which came back at 6.310. Patient is completely asymptomatic and verbalizes no shortness of breath or chest pain. Stat EKG after this troponin with similar ischemic findings from this morning. Kidney function did slightly increase with diuresis but is currently at a negative balance. Patient is in no acute distress and hemodynamically stable. Implemented a heparin drip, plan to continue beta hira, continue daily aspirin, implement loading dose of Plavix, and will hold on RANDI inhibitor due to chronic kidney disease. Discussed the case with Dr. Jimenez who is in agreement with current plan with no intentions for invasive procedures due to the likelihood of worsening renal function due to contrast with the catheterization. Discussed the case with his sister, she states that she makes decisions on his behalf when necessary. She states that he was on hospice for his kidney disease in 2014 but is function seemed to improve and therefore he was removed from hospice services. She was updated on current events of today and agree with no invasive catheterization. She agrees with medical management and to optimize kidney function. She said dialysis will not be an option for the patient as she feels this will drastically impact his quality of life. She would like to see him return to [facility] when medically optimal. Review of systems appear limited as patient is very short answers and is not very conversational. He denies pain and does not appear in any distress. Constitutional: No fever, No chills Respiratory: No cough, No shortness of breath Cardiovascular: No chest pain Abdomen: No pain, No nausea, No vomiting, No diarrhea Musculoskeletal: No swelling, No calf pain Male : No dysuria Heme: No abnormal bleeding/bruising (Acacia Teixeira PA-C) Medications Current Inpatient Medications Medications (Trade) Dose Ordered Sig/Terese Route Start Time Stop Time Status Last Admin Dose Admin Acetaminophen (Tylenol Tab) 650 mg Q4H PRN PO 07/30/17 13:45 08/29/17 13:44 Furosemide 40 mg/ Syringe 4 ml @ 4 mls/min BID IV 07/30/17 21:00 08/29/17 20:59 07/31/17 08:19 4 MLS/MIN Methylprednisolone Sodium Succinate 40 mg/Syringe 0.64 ml @ 1.5 mls/min BID IV 07/30/17 21:00 08/29/17 20:59 07/31/17 08:19 1.5 MLS/MIN Hydralazine HCl (HydrALAZINE INJ) 10 mg Q4H PRN IV. 07/30/17 14:00 08/29/17 13:59 Insulin Aspart (novoLOG ASPART) SLIDING SCALE If C... ACHS SC 07/30/17 16:15 08/29/17 16:14 07/31/17 17:09 9 UNITS Artificial Tears (Lacri-Lube Oph Oint) 1 appln QAM OPL 07/31/17 09:00 08/30/17 08:59 07/31/17 08:19 1 APPLN Insulin Glargine (Lantus Solostar Pen) 40 units DAILY SC 07/31/17 09:00 08/30/17 08:59 07/31/17 08:23 40 UNITS Metoprolol Tartrate (Lopressor Tab) 12.5 mg BID PO 07/30/17 21:00 08/29/17 20:59 07/31/17 08:20 12.5 MG Risperidone (Risperdal Tab) 0.5 mg HS PO 07/30/17 21:00 08/29/17 20:59 07/30/17 20:02 0.5 MG Spironolactone (Aldactone Tab) 25 mg QAM PO 07/31/17 09:00 18 08:59 07/31/17 08:20 25 MG Aspirin (Ecotrin Tab) 81 mg QAM PO 07/31/17 09:00 08/30/17 08:59 07/31/17 08:20 81 MG Glucose (Glucose 40% Gel) 15-30 GRAMS 15 GRAMS... UD PRN PO 07/30/17 16:00 08/29/17 15:59 Glucose (Glucose Chew Tab) 4-8 Tablets 4 Tabl... UD PRN PO 07/30/17 16:00 08/29/17 15:59 Dextrose (Dextrose 50% 50ML Syringe) 25-50ML OF 50% DW IV FOR... UD PRN IV 07/30/17 16:00 08/29/17 15:59 Glucagon (Glucagon Inj) 1 mg UD PRN SQ 07/30/17 16:00 08/29/17 15:59 Ipratropium [place] (Atrovent 0.02% 0.5MG/2.5ML Neb) 0.5 mg Q6R INH 07/30/17 21:00 08/29/17 20:59 07/31/17 14:13 0.5 MG Levalbuterol (Xopenex 1.25MG/ 0.5ML Neb) 1.25 mg Q6R INH 07/30/17 21:00 08/29/17 20:59 07/31/17 14:13 1.25 MG Atorvastatin Calcium (Lipitor Tab) 40 mg HS PO 07/31/17 21:00 08/30/17 20:59 Heparin Sodium/ Dextrose 500 ml @ 31 mls/hr Q16H8M PRN IV 07/31/17 14:15 08/30/17 14:14 07/31/17 14:47 31 MLS/HR Clopidogrel Bisulfate (plAVix TAB) 75 mg QAM PO 08/01/17 09:00 08/31/17 08:59 (Acacia Teixeira, TUC) Objective Vital Signs Date Time Temp Pulse Resp B/P (MAP) Pulse Ox O2 Delivery O2 Flow Rate FiO2 07/31/17 16:18 36.9 86 18 148/80 (102) 95 07/31/17 16:00 Room Air 07/31/17 14:13 87 16 97 Room Air 07/31/17 12:00 Room Air 07/31/17 11:25 91 94 07/31/17 10:55 36.6 89 18 132/74 (93) 96 Room Air 07/31/17 08:00 Room Air 07/31/17 07:56 36.8 113 18 146/77 (100) 94 Room Air 07/31/17 07:04 86 18 98 Room Air 07/31/17 04:00 Room Air 07/31/17 02:49 36.9 94 22 136/71 (92) 93 Room Air 07/31/17 01:49 96 18 97 Room Air 07/31/17 00:00 Room Air 07/30/17 23:43 36.4 89 22 158/68 (98) 94 Room Air 07/30/17 20:00 Room Air 07/30/17 19:23 88 16 98 Room Air (Acacia Teixeira PA-C) Physical Exam General Appearance: WD/WN, no apparent distress Eyes: sclerae normal Neck: supple, no JVD, trachea midline Respiratory/Chest: lungs clear, no respiratory distress, no accessory muscle use, + decreased breath sounds Cardiovascular: regular rate, rhythm Abdomen: normal bowel sounds, non tender, soft Extremities: + swelling (1+ pitting edema bilaterally, however has more of a lymphedema appearance) Neurologic/Psychiatric: alert Skin: normal color, warm/dry (Acacia Teixeira, EMELI-C) Laboratory Results Last 24 Hours Test 07/30/17 20:20 07/30/17 22:45 07/31/17 06:12 07/31/17 06:34 Bedside Glucose 238 mg/dl 211 mg/dl Troponin I 0.325 ng/ml White Blood Count 7.28 K/uL Red Blood Count 3.27 M/uL Hemoglobin 11.0 g/dL Hematocrit 32.2 % Mean Corpuscular Volume 98.5 fL Mean Corpuscular Hemoglobin 33.6 pg Mean Corpuscular Hemoglobin Concent 34.2 g/dl Platelet Count 100 K/uL Mean Platelet Volume 9.5 fL Neutrophils (%) (Auto) 90.8 % Lymphocytes (%) (Auto) 6.6 % Monocytes (%) (Auto) 2.5 % Eosinophils (%) (Auto) 0.0 % Basophils (%) (Auto) 0.0 % Neutrophils # (Auto) 6.61 K/uL Lymphocytes # (Auto) 0.48 K/uL Monocytes # (Auto) 0.18 K/uL Eosinophils # (Auto) 0.00 K/uL Basophils # (Auto) 0.00 K/uL RDW Standard Deviation 48.5 fL RDW Coefficient of Variation 13.5 % Immature Granulocyte % (Auto) 0.1 % Immature Granulocyte # (Auto) 0.01 K/uL Sodium Level 139 mmol/L Potassium Level 4.7 mmol/L Chloride Level 105 mmol/L Carbon Dioxide Level 25 mmol/L Anion Gap 8.0 mmol/L Blood Urea Nitrogen 56 mg/dl Creatinine 3.00 mg/dl Est Creatinine Clear Calc Drug Dose 23.4 ml/min Estimated GFR () 21.4 Estimated GFR (Non- 18.5 BUN/Creatinine Ratio 18.7 Random Glucose 204 mg/dl Estimated Average Glucose 151 mg/dl Hemoglobin A1c 6.9 % Calcium Level 9.0 mg/dl Magnesium Level 1.9 mg/dl Total Bilirubin 0.5 mg/dl Aspartate Amino Transf (AST/SGOT) 67 U/L Alanine Aminotransferase (ALT/SGPT) 48 U/L Alkaline Phosphatase 94 U/L Total Protein 7.0 gm/dl Albumin 2.7 gm/dl Globulin 4.3 gm/dl Albumin/Globulin Ratio 0.6 Test 07/31/17 10:56 07/31/17 11:38 07/31/17 14:58 07/31/17 16:24 Bedside Glucose 245 mg/dl 331 mg/dl Sodium Level 136 mmol/L Potassium Level 4.6 mmol/L Chloride Level 101 mmol/L Carbon Dioxide Level 24 mmol/L Anion Gap 11.0 mmol/L Blood Urea Nitrogen 62 mg/dl Creatinine 3.32 mg/dl Est Creatinine Clear Calc Drug Dose 21.2 ml/min Estimated GFR () 19.0 Estimated GFR (Non- 16.4 BUN/Creatinine Ratio 18.6 Random Glucose 233 mg/dl Calcium Level 9.2 mg/dl Troponin I 6.310 ng/ml White Blood Count 13.01 K/uL Red Blood Count 3.25 M/uL Hemoglobin 11.0 g/dL Hematocrit 32.3 % Mean Corpuscular Volume 99.4 fL Mean Corpuscular Hemoglobin 33.8 pg Mean Corpuscular Hemoglobin Concent 34.1 g/dl Platelet Count 107 K/uL Mean Platelet Volume 10.0 fL Neutrophils (%) (Auto) 89.5 % Lymphocytes (%) (Auto) 5.1 % Monocytes (%) (Auto) 4.9 % Eosinophils (%) (Auto) 0.0 % Basophils (%) (Auto) 0.1 % Neutrophils # (Auto) 11.64 K/uL Lymphocytes # (Auto) 0.67 K/uL Monocytes # (Auto) 0.64 K/uL Eosinophils # (Auto) 0.00 K/uL Basophils # (Auto) 0.01 K/uL RDW Standard Deviation 49.8 fL RDW Coefficient of Variation 13.8 % Immature Granulocyte % (Auto) 0.4 % Immature Granulocyte # (Auto) 0.05 K/uL Prothrombin Time 11.6 SECONDS Prothromb Time International Ratio 1.1 Activated Partial Thromboplast Time 25.7 SECONDS Partial Thromboplastin Ratio 1.0 Test 07/31/17 17:30 07/31/17 17:53 Creatine Kinase MB Ratio (Acacia Teixeira, PALuciano) Assessment and Plan Mr. Medellin is an 81 year old man here for CHF exacerbation. Acute Diastolic CHF: - Echo - grade 1 diastolic dysfunction with EF 55-60% - Hold further Lasix as creatinine continues to rise - will implement Bumex 1 mg daily and monitor tolerance - negative balance of approximately 1 L - Spironolactone 25 mg daily - Appears largely asymptomatic at this time - suspect lower extremity edema is more of a lymphedema picture versus venous insufficiency - Given rising troponins the reported shortness of breath may have been related to an acute coronary event - Continue daily weights and I&O's NSTEMI: - Patient has remained asymptomatic with repeat EKG showing mild ischemic changes in the anterolateral leads - troponins initially trended down however slightly increased this a.m. with repeat this afternoon with a drastic increase from 0.3 to 6.310 - Initiated heparin drip with bolus and will maintain 48 hours - Loading dose Plavix 300 mg 1 dose then resume 75 mg daily - Continue daily ASA 81 mg and low-dose metoprolol 12.5 mg BID - Will not implement ACEI due to chronic kidney disease - Atorvastatin 80 mg HS - continue to monitor response or any adverse effects from statin therapy - Plan to likely repeat echocardiogram to further evaluate wall motion abnormalities or worsening LV dysfunction - Cardiology following - discussed the case with Dr. Jimenez - and continue the current plan CKD Stage V - No Dialysis: - Patient was previously on hospice services in 2014 due to end-stage renal disease however creatinine began to improve and the decision to stop hospice services was implemented - discussed current kidney function and current findings of NSTEMI and sister reinforces that patient will not receive dialysis and would like to continue medical management and optimize kidney function as best as possible - Limited labs to truly kalani his baseline function - however creatinine has been as high as the 4s which we are nearing - may need to consider nephrology consultation for recommendations to try and optimize his kidney function and the most conservative measure possible T2DM wit Hyperglycemia: - Continue Lantus and SSI Paranoid Schizophrenia: STABLE - Risperdal 0.5 mg HS DVT Prophylaxis: Heparin drip Code Status: DO NOT RESUSCITATE Disposition: - PT/OT - anticipate discharge back to [facility] when medically clear - Updated his sister over the phone who is in agreement with current plan - she reiterates that dialysis is not an option for this patient - will continue to monitor his kidney function and tolerance to this current NSTEMI the topic of palliative care could be readdressed with patient and his sister. Continued [facility] stay due to: multiple IV medications needed Discharge planning: group home facility ([facility]) (Acacia Teixeira, GISSEL) I performed a history and physical examination on the patient. I reviewed above note and agree with what is written. During my face to face interaction with the patient, I updated the patient on the plan and answered all of the patient's questions. My exam is below: General Appearance: WD/WN, no apparent distress Neck: supple, no JVD, trachea midline Respiratory/Chest: decreased breath sounds, no respiratory distress, no accessory muscle use Cardiovascular: regular rate, rhythm, Abdomen: normal bowel sounds, non tender, soft Extremities: +1 pedal edema, no calf tenderness, Neurologic/Psychiatric: alert, oriented x 3 Skin: normal color, warm/dry (John Newell M.D.)
--- NOTE | 2017-07-31 19:00 | Cardiology Follow-Up ---
Subjective Date of Service: Jul 31, 2017. Pt evaluation today including: conversation w/ patient, physical exam, chart review, lab review, conversation w/ attending History of Present Illness This morning he claims to be feeling well. He denies dyspnea, chest pain or other symptoms. no orthopnea. No leg pain. He ate breakfast. Social History Smoking Status: Former Smoker History of Alcohol Use: No Review of Systems Respiratory: No cough, No shortness of breath Cardiac: No chest pain Per HPI. Additional review of systems was difficult to obtain due to his mental illness Objective Vital Signs Past 12 Hours Date Time Temp Pulse Resp B/P (MAP) Pulse Ox O2 Delivery O2 Flow Rate FiO2 07/31/17 16:18 36.9 86 18 148/80 (102) 95 07/31/17 16:00 Room Air 07/31/17 14:13 87 16 97 Room Air 07/31/17 12:00 Room Air 07/31/17 11:25 91 94 07/31/17 10:55 36.6 89 18 132/74 (93) 96 Room Air 07/31/17 08:00 Room Air 07/31/17 07:56 36.8 113 18 146/77 (100) 94 Room Air 07/31/17 07:04 86 18 98 Room Air Last Recorded Weight-Kilograms: 112.000 Intake & Output 8-Hour Column 07/31/17 08/01/17 08/01/17 16:00 00:00 08:00 Intake Total 445 ml Balance 445 ml 24-Hour Column 08/01/17 08:00 Intake Total 445 ml Balance 445 ml Physical Exam The patient is alert and oriented. Mood and affect were flat He answered all questions appropriately. HEENT: Pupils are equal and reactive to light and accommodation. Extraocular movements are intact. The sclerae are anicteric. Neuro: Cranial nerves intact Neck: Patient's neck is supple. He has palpable carotid pulses bilaterally without bruits on auscultation. I could not evaluate for jugular venous distention given the redundant nature of his neck tissue. The thyroid is not enlarged. Lungs: Clear to auscultation bilaterally. He has good air movement without use of accessory muscles. No rales wheezes or rhonchi. Cardiac: Heart demonstrates a regular rate and rhythm. Normal S1 and S2. No murmurs on examination. Pulses: The patient has palpable radial pulses bilaterally that are equal in intensity Extremities: There was no evidence of hypoperfusion. There is no cyanosis or clubbing. There is no edema he has moderate bilateral peripheral edema in the lower extremities. There is an element of erythema on the anterior aspect of both legs. Skin: Patient does have an erythematous and raised rash underneath his neck Data Laboratory Results: Last 24 Hours Test 07/30/17 20:20 07/30/17 22:45 07/31/17 06:12 07/31/17 06:34 Bedside Glucose 238 mg/dl 211 mg/dl Troponin I 0.325 ng/ml White Blood Count 7.28 K/uL Red Blood Count 3.27 M/uL Hemoglobin 11.0 g/dL Hematocrit 32.2 % Mean Corpuscular Volume 98.5 fL Mean Corpuscular Hemoglobin 33.6 pg Mean Corpuscular Hemoglobin Concent 34.2 g/dl Platelet Count 100 K/uL Mean Platelet Volume 9.5 fL Neutrophils (%) (Auto) 90.8 % Lymphocytes (%) (Auto) 6.6 % Monocytes (%) (Auto) 2.5 % Eosinophils (%) (Auto) 0.0 % Basophils (%) (Auto) 0.0 % Neutrophils # (Auto) 6.61 K/uL Lymphocytes # (Auto) 0.48 K/uL Monocytes # (Auto) 0.18 K/uL Eosinophils # (Auto) 0.00 K/uL Basophils # (Auto) 0.00 K/uL RDW Standard Deviation 48.5 fL RDW Coefficient of Variation 13.5 % Immature Granulocyte % (Auto) 0.1 % Immature Granulocyte # (Auto) 0.01 K/uL Sodium Level 139 mmol/L Potassium Level 4.7 mmol/L Chloride Level 105 mmol/L Carbon Dioxide Level 25 mmol/L Anion Gap 8.0 mmol/L Blood Urea Nitrogen 56 mg/dl Creatinine 3.00 mg/dl Est Creatinine Clear Calc Drug Dose 23.4 ml/min Estimated GFR () 21.4 Estimated GFR (Non- 18.5 BUN/Creatinine Ratio 18.7 Random Glucose 204 mg/dl Estimated Average Glucose 151 mg/dl Hemoglobin A1c 6.9 % Calcium Level 9.0 mg/dl Magnesium Level 1.9 mg/dl Total Bilirubin 0.5 mg/dl Aspartate Amino Transf (AST/SGOT) 67 U/L Alanine Aminotransferase (ALT/SGPT) 48 U/L Alkaline Phosphatase 94 U/L Total Protein 7.0 gm/dl Albumin 2.7 gm/dl Globulin 4.3 gm/dl Albumin/Globulin Ratio 0.6 Test 07/31/17 10:56 07/31/17 11:38 07/31/17 14:58 07/31/17 16:24 Bedside Glucose 245 mg/dl 331 mg/dl Sodium Level 136 mmol/L Potassium Level 4.6 mmol/L Chloride Level 101 mmol/L Carbon Dioxide Level 24 mmol/L Anion Gap 11.0 mmol/L Blood Urea Nitrogen 62 mg/dl Creatinine 3.32 mg/dl Est Creatinine Clear Calc Drug Dose 21.2 ml/min Estimated GFR () 19.0 Estimated GFR (Non- 16.4 BUN/Creatinine Ratio 18.6 Random Glucose 233 mg/dl Calcium Level 9.2 mg/dl Troponin I 6.310 ng/ml White Blood Count 13.01 K/uL Red Blood Count 3.25 M/uL Hemoglobin 11.0 g/dL Hematocrit 32.3 % Mean Corpuscular Volume 99.4 fL Mean Corpuscular Hemoglobin 33.8 pg Mean Corpuscular Hemoglobin Concent 34.1 g/dl Platelet Count 107 K/uL Mean Platelet Volume 10.0 fL Neutrophils (%) (Auto) 89.5 % Lymphocytes (%) (Auto) 5.1 % Monocytes (%) (Auto) 4.9 % Eosinophils (%) (Auto) 0.0 % Basophils (%) (Auto) 0.1 % Neutrophils # (Auto) 11.64 K/uL Lymphocytes # (Auto) 0.67 K/uL Monocytes # (Auto) 0.64 K/uL Eosinophils # (Auto) 0.00 K/uL Basophils # (Auto) 0.01 K/uL RDW Standard Deviation 49.8 fL RDW Coefficient of Variation 13.8 % Immature Granulocyte % (Auto) 0.4 % Immature Granulocyte # (Auto) 0.05 K/uL Prothrombin Time 11.6 SECONDS Prothromb Time International Ratio 1.1 Activated Partial Thromboplast Time 25.7 SECONDS Partial Thromboplastin Ratio 1.0 Test 07/31/17 17:30 07/31/17 17:53 Creatine Kinase MB Ratio Creatine Kinase MB 34.4 ng/ml Troponin I 5.970 ng/ml EKG: sinus. Perhaps slightly more ST depression in the lateral precordial leads Echocardiogram demonstrated normal LV function Assessment and Plan 1. Edema: Not likely related exclusively to heart failure. He has responded somewhat to diuresis. Renal function stable. 2. Elevated cardiac biomarkers: Troponin markedly elevated this afternoon. Suggests a event in the past 12 hours. No symptoms and normal LV function yesterday afternoon. Possibly a plaque-rupture event. He is not a candidate for invasive management. I think the best course of action is to treat him conservatively. I agree with heparin for 48 hours. Continue beta hira and aspirin. Load with plavix and continue on a daily dose. I don't think there is arole for any additional testing or intervention in the absence of significant decompensation or symptoms. If he does well, He could be discharged with his usual medications and the addition of plavix. I will be away from the hospital over the weekend and holiday. Additional questions can be directed to Dr. Richardson the covering lap maker.
[2017-07-31] MEDS ORDERED: ATORVASTATIN 40 MG TAB PO SCH ×2 (21:00)
[2017-07-31] MEDS ORDERED: METOPROLOL TARTRATE 25 MG TAB PO SCH (21:00)
[2017-07-31] MEDS: RISPERIDONE 0.5 MG TAB PO SCH (21:06)
[2017-07-31 21:49] LABS: PARTIAL THROMBOPLASTIN RATIO 6.2
[2017-07-31 23:37] LABS: PARTIAL THROMBOPLASTIN RATIO 4.3
[2017-08-01] VITALS (12 sets, daily range): BP systolic 115–153; BP diastolic 72–83; PULSE 77–100; TEMP 36.4–36.7; O2SAT 92–100
[2017-08-01 01:22] LABS: PARTIAL THROMBOPLASTIN RATIO 2.4
[2017-08-01] MEDS: LEVALBUTEROL 1.25MG/0.5ML NEB INH SCH ×4 (02:09→19:23)
[2017-08-01] MEDS: IPRATROPIUM BROMIDE NEB SOLN 0.02% 2.5 ML VIAL INH SCH ×4 (02:09→19:23)
[2017-08-01 03:47] LABS: HEMATOCRIT 31.6 % (42-52); MEAN CELL VOLUME 98.8 fL (80-100); MEAN CORPUSCULAR HEMOGLOBIN 34.4 pg (25-34); MEAN CORPUSCULAR HGB CONC 34.8 g/dl (32-36); MEAN PLATELET VOLUME 9.7 fL (7.4-10.4); PLATELET COUNT 108 K/uL (130-400); WHITE BLOOD COUNT 18.33 K/uL (4.8-10.8)
[2017-08-01 06:26] LABS: BUN/CREATININE RATIO 22.5 (10-20); CALCIUM 8.8 mg/dl (8.5-10.1); CREATININE 3.21 mg/dl (0.60-1.40); POTASSIUM 4.5 mmol/L (3.5-5.1)
[2017-08-01] MEDS: ASPIRIN 81 MG ECTAB PO SCH (08:20)
[2017-08-01] MEDS: METOPROLOL TARTRATE 25 MG TAB PO SCH (08:21)
[2017-08-01] MEDS: SPIRONOLACTONE 25 MG TAB PO SCH (08:21)
[2017-08-01] MEDS: ARTIFICIAL TEARS OP OINT 3.5 GM TUBE OPL SCH (08:22)
[2017-08-01] MEDS: CLOPIDOGREL BISULFATE 75 MG TAB PO SCH (08:22)
[2017-08-01] MEDS: BUMETANIDE 1 MG TAB PO SCH (08:22)
[2017-08-01 08:24] LABS: PARTIAL THROMBOPLASTIN RATIO 2.7
[2017-08-01] MEDS: INSULIN ASPART 100 UNITS/ML 3 ML PEN SC SCH ×4 (08:25→21:07)
[2017-08-01] MEDS: INSULIN GLARGINE SOLOSTAR 100 UNITS/ML 3 ML PEN SC SCH (08:26)
[2017-08-01] MEDS ORDERED: METOPROLOL TARTRATE 25 MG TAB PO ONE (09:45)
--- NOTE | 2017-08-01 12:00 | Progress Note ---
Subjective Date of Service: Aug 01, 2017. Subjective Pt evaluation today including: conversation w/ patient, physical exam, chart review Patient appears to be short of breath however, he states that he is fine. He denies any symptoms of chest pain, nausea, vomiting. 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 and albumin creatinine ratio 30- 299 mg/g Status: Acute (3) Dyspnea Status: Acute (4) Hypertension Status: Chronic (5) Paranoid schizophrenia Status: Chronic (6) Peripheral vascular disease Status: Chronic (7) Renal insufficiency Status: Acute (8) Slurred speech Status: Acute (9) Type 2 diabetes mellitus Status: Chronic (10) Weakness on left side of face Status: Acute Review of Systems Constitutional: No fever, No chills Eyes: No worsening of vision, No eye pain ENT: No hearing loss, No unusual epistaxis Respiratory: No cough, No sputum Cardiac: No chest pain, No orthopnea Abdomen: No pain, No nausea Neurologic: No memory loss, No paralysis Heme: No abnormal bleeding/bruising Endo: No fatigue Skin: No rash, No itch All Other Systems: Reviewed and Negative Medications Current Inpatient Medications Medications (Trade) Dose Ordered Sig/Terese Route Start Time Stop Time Status Last Admin Dose Admin Acetaminophen (Tylenol Tab) 650 mg Q4H PRN PO 07/30/17 13:45 08/29/17 13:44 Hydralazine HCl (HydrALAZINE INJ) 10 mg Q4H PRN IV. 07/30/17 14:00 08/29/17 13:59 Insulin Aspart (novoLOG ASPART) SLIDING SCALE If C... ACHS SC 07/30/17 16:15 08/29/17 16:14 08/01/17 08:25 4 UNITS Artificial Tears (Lacri-Lube Oph Oint) 1 appln QAM OPL 07/31/17 09:00 08/30/17 08:59 08/01/17 08:22 1 APPLN Insulin Glargine (Lantus Solostar Pen) 40 units DAILY SC 07/31/17 09:00 08/30/17 08:59 08/01/17 08:26 40 UNITS Risperidone (Risperdal Tab) 0.5 mg HS PO 07/30/17 21:00 08/29/17 20:59 07/31/17 21:06 0.5 MG Spironolactone (Aldactone Tab) 25 mg QAM PO 07/31/17 09:00 08/30/17 08:59 08/01/17 08:21 25 MG Aspirin (Ecotrin Tab) 81 mg QAM PO 07/31/17 09:00 08/30/17 08:59 08/01/17 08:20 81 MG Glucose (Glucose 40% Gel) 15-30 GRAMS 15 GRAMS... UD PRN PO 07/30/17 16:00 08/29/17 15:59 Glucose (Glucose Chew Tab) 4-8 Tablets 4 Tabl... UD PRN PO 07/30/17 16:00 08/29/17 15:59 Dextrose (Dextrose 50% 50ML Syringe) 25-50ML OF 50% DW IV FOR... UD PRN IV 07/30/17 16:00 08/29/17 15:59 Glucagon (Glucagon Inj) 1 mg UD PRN SQ 07/30/17 16:00 08/29/17 15:59 Ipratropium [place] (Atrovent 0.02% 0.5MG/2.5ML Neb) 0.5 mg Q6R INH 07/30/17 21:00 08/29/17 20:59 08/01/17 07:02 0.5 MG Levalbuterol (Xopenex 1.25MG/ 0.5ML Neb) 1.25 mg Q6R INH 07/30/17 21:00 08/29/17 20:59 08/01/17 07:02 1.25 MG Heparin Sodium/ Dextrose 500 ml @ 26 mls/hr [id number] PRN IV 07/31/17 14:15 08/30/17 14:14 07/31/17 14:47 31 MLS/HR Clopidogrel Bisulfate (plAVix TAB) 75 mg QAM PO 08/01/17 09:00 08/31/17 08:59 08/01/17 08:22 75 MG Bumetanide (Bumex Tab) 1 mg QAM PO 08/01/17 09:00 08/31/17 08:59 08/01/17 08:22 1 MG Atorvastatin Calcium (Lipitor Tab) 80 mg HS PO 07/31/17 21:00 08/30/17 20:59 07/31/17 21:07 80 MG Metoprolol Succinate (Toprol Xl Tab) 50 mg HS PO 08/01/17 21:00 08/31/17 20:59 Objective Vital Signs Date Time Temp Pulse Resp B/P (MAP) Pulse Ox O2 Delivery O2 Flow Rate FiO2 08/01/17 08:00 Nasal Cannula 2.0 08/01/17 07:38 36.4 95 20 145/75 (98) 97 Nasal Cannula 2.0 08/01/17 07:04 98 18 97 Nasal Cannula 2.0 08/01/17 03:50 36.4 94 23 153/77 (102) 93 Room Air 08/01/17 02:10 81 16 92 Room Air 07/31/17 23:35 36.4 93 22 149/75 (99) 93 07/31/17 19:10 37.0 69 18 133/69 (90) 95 07/31/17 19:04 89 16 97 Room Air 07/31/17 16:18 36.9 86 18 148/80 (102) 95 07/31/17 16:00 Room Air 07/31/17 14:13 87 16 97 Room Air 07/31/17 12:00 Room Air Physical Exam General Appearance: + mild distress, + obese, + pertinent finding (using accesory muscles to breath) Neck: supple, no adenopathy Respiratory/Chest: + decreased breath sounds, + accessory muscle use, + rales Cardiovascular: regular rate, rhythm, no murmur Abdomen: normal bowel sounds, non tender, soft Extremities: + pedal edema Skin: normal color Lymphatic: no adenopathy Laboratory Results Last 24 Hours Test 07/31/17 14:58 07/31/17 16:24 07/31/17 17:30 07/31/17 17:53 White Blood Count 13.01 K/uL Red Blood Count 3.25 M/uL Hemoglobin 11.0 g/dL Hematocrit 32.3 % Mean Corpuscular Volume 99.4 fL Mean Corpuscular Hemoglobin 33.8 pg Mean Corpuscular Hemoglobin Concent 34.1 g/dl Platelet Count 107 K/uL Mean Platelet Volume 10.0 fL Neutrophils (%) (Auto) 89.5 % Lymphocytes (%) (Auto) 5.1 % Monocytes (%) (Auto) 4.9 % Eosinophils (%) (Auto) 0.0 % Basophils (%) (Auto) 0.1 % Neutrophils # (Auto) 11.64 K/uL Lymphocytes # (Auto) 0.67 K/uL Monocytes # (Auto) 0.64 K/uL Eosinophils # (Auto) 0.00 K/uL Basophils # (Auto) 0.01 K/uL RDW Standard Deviation 49.8 fL RDW Coefficient of Variation 13.8 % Immature Granulocyte % (Auto) 0.4 % Immature Granulocyte # (Auto) 0.05 K/uL Prothrombin Time 11.6 SECONDS Prothromb Time International Ratio 1.1 Activated Partial Thromboplast Time 25.7 SECONDS Partial Thromboplastin Ratio 1.0 Bedside Glucose 331 mg/dl Creatine Kinase MB Ratio Creatine Kinase MB 34.4 ng/ml Troponin I 5.970 ng/ml Test 07/31/17 20:13 07/31/17 21:06 07/31/17 22:56 08/01/17 00:42 Bedside Glucose 333 mg/dl Activated Partial Thromboplast Time 161.3 SECONDS 111.2 SECONDS 61.5 SECONDS Partial Thromboplastin Ratio 6.2 4.3 2.4 Creatine Kinase MB 45.0 ng/ml Creatine Kinase MB Ratio Troponin I 5.860 ng/ml Test 08/01/17 03:24 08/01/17 05:30 08/01/17 05:37 08/01/17 07:10 White Blood Count 18.33 K/uL Red Blood Count 3.20 M/uL Hemoglobin 11.0 g/dL Hematocrit 31.6 % Mean Corpuscular Volume 98.8 fL Mean Corpuscular Hemoglobin 34.4 pg Mean Corpuscular Hemoglobin Concent 34.8 g/dl RDW Standard Deviation 49.5 fL RDW Coefficient of Variation 13.8 % Platelet Count 108 K/uL Mean Platelet Volume 9.7 fL Nucleated RBC Absolute Count (auto) 0.02 K/uL Nucleated Red Blood Cells % 0.1 % Creatine Kinase MB Ratio Sodium Level 136 mmol/L Potassium Level 4.5 mmol/L Chloride Level 101 mmol/L Carbon Dioxide Level 23 mmol/L Anion Gap 12.0 mmol/L Blood Urea Nitrogen 72 mg/dl Creatinine 3.21 mg/dl Est Creatinine Clear Calc Drug Dose 21.9 ml/min Estimated GFR () 19.7 Estimated GFR (Non- 17.0 BUN/Creatinine Ratio 22.5 Random Glucose 164 mg/dl Calcium Level 8.8 mg/dl Creatine Kinase MB 121.3 ng/ml Troponin I 30.700 ng/ml Bedside Glucose 163 mg/dl Test 08/01/17 07:57 Activated Partial Thromboplast Time 69.9 SECONDS Partial Thromboplastin Ratio 2.7 Assessment and Plan Acute NSTEMI while hospitalized for another issue in a 81 yo male with h/o SEVERE CKD, DM2, grade 1 diastolic dysfucntion Patient initially brought in for edema in his lower extremities. 1. NSTEMI likely secondary to plaque rupture Troponin elevated to 30. Patient did have an Echocardiogram on the . Normal LV and Grade 1 diastolic dysfunction. However, this appears to have been prior to this new event. Will obtain a repeat limited 2d echo as patients troponin and CKMB is significantly elevated. will repeat EKG and chest x-ray. Patient on heparin drip, statin, plavix.beta hira ASA. Patient was loaded on plavix yesterday. As I suspect a likely decrease in LV function, will switch metoprolol to succinate today. I increased his beta hira to a total daily dose of 50 as his HR has been tachycardic to decrease demand. Cardiology will see patient later today. Cardiology was informed. 2. Tachypnea likely secondary to Acute Diastolic CHF, may have new systolic dysfunction will order lasix. awaiting 2d echo. on 2L NC. continue spironolactone 25 mg daily continue weight and Is and Os 3. CKD Stage V - No Dialysis: - Patient was previously on hospice services in 2014 due to end-stage renal disease however creatinine began to improve and the decision to stop hospice services was implemented - discussed current kidney function and current findings of NSTEMI and sister reinforces that patient will not receive dialysis and would like to continue medical management and optimize kidney function as best as possible - Limited labs to truly kalani his baseline function - however creatinine has been as high as the 4s which we are nearing - may need to consider nephrology consultation for recommendations to try and optimize his kidney function and the most conservative measure possible T2DM wit Hyperglycemia: - Continue Lantus and SSI Paranoid Schizophrenia: STABLE - Risperdal 0.5 mg HS DVT Prophylaxis: Heparin drip Code Status: DO NOT RESUSCITATE Continued [facility] stay due to: multiple IV medications needed Discharge planning: senior living facility ([facility])
[2017-08-01] MEDS ORDERED: FUROSEMIDE INJ 40 MG in SYRINGE 0 ML IV STA (12:14)
[2017-08-01] MEDS ORDERED: FUROSEMIDE INJ 40 MG in SYRINGE 0 ML IV ONE (12:15)
[2017-08-01] MEDS: HEPARIN 25,000 UNIT/500ML D5W 500 ML IV PRN (12:52)
--- NOTE | 2017-08-01 12:56 | DIAGNOSTIC IMAGING REPORT ---
CHEST ONE VIEW PORTABLE HISTORY: SHORTNESS OF BREATH COMPARISON: Chest 07/30/2017. FINDINGS: No pneumothorax. The heart remains mildly enlarged. Pulmonary edema and small bilateral pleural effusions persist. No new focal lung consolidations. IMPRESSION: No change in the mild pulmonary edema and small bilateral pleural effusions. Electronically signed by: Aleks Meyers M.D. 08/01/2017 12:55 PM Dictated Date/Time: 08/01/2017 12:53 PM
--- NOTE | 2017-08-01 13:25 | Cardiology Follow-Up ---
Subjective General Date of Service: Aug 01, 2017. Pt evaluation today including: conversation w/ patient, physical exam, chart review, lab review, conversation w/ corporate learning consultant, review of inpatient medication list History of Present Illness The patient is a 81 year old male with NSTEMI Allergies Coded Allergies: No Known Allergies (Unverified , 07/30/17) Social History Smoking Status: Former Smoker Hx Tobacco Use In Past Year?: Yes (Cigars) Hx Alcohol Use - Type And Amou: No Hx Substance Use - Type And Am: No 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 and albumin creatinine ratio 30- 299 mg/g Status: Acute (3) Dyspnea Status: Acute (4) Hypertension Status: Chronic (5) Paranoid schizophrenia Status: Chronic (6) Peripheral vascular disease Status: Chronic (7) Renal insufficiency Status: Acute (8) Slurred speech Status: Acute (9) Type 2 diabetes mellitus Status: Chronic (10) Weakness on left side of face Status: Acute Review of Systems Respiratory: + shortness of breath, + dyspnea at rest Cardiac: + edema, No chest pain, No palpitations Additional ROS Details: nose bleeds; SOB talking; increased abd distention rest of ROS -- or unobtainable Physical Exam Vital Signs Last Vital Signs Documentation Date Time Temp Pulse Resp B/P (MAP) Pulse Ox O2 Delivery O2 Flow Rate FiO2 08/01/17 08:00 Nasal Cannula 2.0 08/01/17 07:38 36.4 95 20 145/75 (98) 97 Physical Exam Constitutional: General Apperance: overweight Level of Distress: moderate distress, acutely ill Head: normocephalic, atraumatic Lungs: Respiratory effort: dyspneic Auscultation: no wheezing, no rales/crackles, no rhonchi, decreased breath sounds Cardiovascular: Heart Auscultation: RRR, no murmurs, no rubs, no gallops Abdomen: Bowel Sounds: normal Inspection & Palpation: soft, no tenderness, guarding & rebound, distended Extremities: edema (noderate to knee b/l) Assessment and Plan Assessment and Plan 1)NSTEMI with anterolateral ST depression 2) CKD stage with FINANCIAL SERVICES REPRESENTATIVE 3.2--refuses HD 3) Medical Tx for CAD as cath would lead to likely HD 4) Normal LV fxn on admission 5)HTN 6)Acute on chronic systolic and diastolic CHF Trend troponin to peak Add NTG paste and if condition worsens change to NTG drip continue ASA, Heparin, Plavix, BB, statin Change to Bumex 1 mg IV BID Be Bipap Echo only for prognostic purposes and not now as he is unstable Likely with significant CAD Asked Husam again if he want cath understanding he would likely need HD and he does not wasn't the risk of HD D/w Primary service Laboratory Results Last 24 Hours Test 07/31/17 14:58 07/31/17 16:24 07/31/17 17:30 07/31/17 17:53 White Blood Count 13.01 K/uL Red Blood Count 3.25 M/uL Hemoglobin 11.0 g/dL Hematocrit 32.3 % Mean Corpuscular Volume 99.4 fL Mean Corpuscular Hemoglobin 33.8 pg Mean Corpuscular Hemoglobin Concent 34.1 g/dl Platelet Count 107 K/uL Mean Platelet Volume 10.0 fL Neutrophils (%) (Auto) 89.5 % Lymphocytes (%) (Auto) 5.1 % Monocytes (%) (Auto) 4.9 % Eosinophils (%) (Auto) 0.0 % Basophils (%) (Auto) 0.1 % Neutrophils # (Auto) 11.64 K/uL Lymphocytes # (Auto) 0.67 K/uL Monocytes # (Auto) 0.64 K/uL Eosinophils # (Auto) 0.00 K/uL Basophils # (Auto) 0.01 K/uL RDW Standard Deviation 49.8 fL RDW Coefficient of Variation 13.8 % Immature Granulocyte % (Auto) 0.4 % Immature Granulocyte # (Auto) 0.05 K/uL Prothrombin Time 11.6 SECONDS Prothromb Time International Ratio 1.1 Activated Partial Thromboplast Time 25.7 SECONDS Partial Thromboplastin Ratio 1.0 Bedside Glucose 331 mg/dl Creatine Kinase MB Ratio Creatine Kinase MB 34.4 ng/ml Troponin I 5.970 ng/ml Test 07/31/17 20:13 07/31/17 21:06 07/31/17 22:56 08/01/17 00:42 Bedside Glucose 333 mg/dl Activated Partial Thromboplast Time 161.3 SECONDS 111.2 SECONDS 61.5 SECONDS Partial Thromboplastin Ratio 6.2 4.3 2.4 Creatine Kinase MB 45.0 ng/ml Creatine Kinase MB Ratio Troponin I 5.860 ng/ml Test 08/01/17 03:24 08/01/17 05:30 08/01/17 05:37 08/01/17 07:10 White Blood Count 18.33 K/uL Red Blood Count 3.20 M/uL Hemoglobin 11.0 g/dL Hematocrit 31.6 % Mean Corpuscular Volume 98.8 fL Mean Corpuscular Hemoglobin 34.4 pg Mean Corpuscular Hemoglobin Concent 34.8 g/dl RDW Standard Deviation 49.5 fL RDW Coefficient of Variation 13.8 % Platelet Count 108 K/uL Mean Platelet Volume 9.7 fL Nucleated RBC Absolute Count (auto) 0.02 K/uL Nucleated Red Blood Cells % 0.1 % Creatine Kinase MB Ratio Sodium Level 136 mmol/L Potassium Level 4.5 mmol/L Chloride Level 101 mmol/L Carbon Dioxide Level 23 mmol/L Anion Gap 12.0 mmol/L Blood Urea Nitrogen 72 mg/dl Creatinine 3.21 mg/dl Est Creatinine Clear Calc Drug Dose 21.9 ml/min Estimated GFR () 19.7 Estimated GFR (Non- 17.0 BUN/Creatinine Ratio 22.5 Random Glucose 164 mg/dl Calcium Level 8.8 mg/dl Creatine Kinase MB 121.3 ng/ml Troponin I 30.700 ng/ml Bedside Glucose 163 mg/dl Test 08/01/17 07:57 08/01/17 11:25 Activated Partial Thromboplast Time 69.9 SECONDS Partial Thromboplastin Ratio 2.7 Bedside Glucose 201 mg/dl
[2017-08-01] MEDS: NITROGLYCERIN OINT 2% 1GM PACKET EXT SCH ×2 (14:30→20:00)
[2017-08-01] MEDS ORDERED: PERFLUTREN LIPID MICROSPHERE (DEFINITY) IV ONE (15:19)
[2017-08-01] MEDS: BUMETANIDE IV 1 MG in SYRINGE 0 ML IV SCH (16:06)
[2017-08-01] MEDS ORDERED: MoRPHine SULFATE 2 MG/ML CARP IV STA (17:44)
[2017-08-01] MEDS ORDERED: ATROPINE SULFATE 1% OP SOLN 5 ML BTL SL ONE (17:48)
[2017-08-01] MEDS ORDERED: SCOPOLAMINE 1.5 MG TDSY TD SCH (18:00)
[2017-08-01] MEDS ORDERED: LORAZEPAM 2 MG/ML 1 ML VIAL IV PRN (18:00)
[2017-08-01] MEDS ORDERED: ATROPINE SULFATE 1% OP SOLN 5 ML BTL SL PRN (18:00)
[2017-08-01] MEDS: MoRPHine SULFATE 2 MG/ML CARP IV PRN (18:13)
[2017-08-01] MEDS ORDERED: NURSING VERBAL MED ORDER ONE (18:30)
[2017-08-01] MEDS: RISPERIDONE 0.5 MG TAB PO SCH (20:58)
[2017-08-01] MEDS ORDERED: METOPROLOL SUCC 50MG EXT REL TAB PO SCH (21:00)
[2017-08-02] MEDS: MoRPHine SULFATE 2 MG/ML CARP IV PRN ×7 (00:03→16:10)
[2017-08-02] MEDS: LORAZEPAM INJ 0.5 MG in SYRINGE 0.75 ML IV PRN ×2 (00:59→07:17)
[2017-08-02] MEDS: IPRATROPIUM BROMIDE NEB SOLN 0.02% 2.5 ML VIAL INH SCH ×3 (01:58→14:25)
[2017-08-02 01:59] VITALS: PULSE 78; O2SAT 93
[2017-08-02] MEDS: LEVALBUTEROL 1.25MG/0.5ML NEB INH SCH ×3 (01:59→14:25)
[2017-08-02] MEDS: NITROGLYCERIN OINT 2% 1GM PACKET EXT SCH ×3 (02:25→14:00)
[2017-08-02 02:35] VITALS: BP 145/78; PULSE 118
[2017-08-02 06:57] VITALS: PULSE 117; O2SAT 97
[2017-08-02] MEDS: CHECK SCOPOLAMINE PATCH PLACEMENT SCH ×3 (07:33→16:09)
[2017-08-02] MEDS: SPIRONOLACTONE 25 MG TAB PO SCH (07:35)
[2017-08-02] MEDS: CLOPIDOGREL BISULFATE 75 MG TAB PO SCH (07:35)
[2017-08-02] MEDS: BUMETANIDE 1 MG TAB PO SCH (07:35)
--- NOTE | 2017-08-02 07:59 | Progress Note ---
Subjective Date of Service: Aug 02, 2017. Subjective Pt evaluation today including: conversation w/ patient, physical exam 81 yo male who is resting in bed. He appears to be using his accessory muscles to breath. He is a poor historian at this point, does not provide any symtpoms. When asked if he is short of breath, he shakes his head. 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 and albumin creatinine ratio 30- 299 mg/g Status: Acute (3) Dyspnea Status: Acute (4) Hypertension Status: Chronic (5) Paranoid schizophrenia Status: Chronic (6) Peripheral vascular disease Status: Chronic (7) Renal insufficiency Status: Acute (8) Slurred speech Status: Acute (9) Type 2 diabetes mellitus Status: Chronic (10) Weakness on left side of face Status: Acute Review of Systems All Other Systems: Reviewed and Negative Medications Current Inpatient Medications Medications (Trade) Dose Ordered Sig/Terese Route Start Time Stop Time Status Last Admin Dose Admin Acetaminophen (Tylenol Tab) 650 mg Q4H PRN PO 07/30/17 13:45 08/29/17 13:44 Insulin Aspart (novoLOG ASPART) SLIDING SCALE If C... ACHS SC 07/30/17 16:15 08/29/17 16:14 08/01/17 21:07 1 UNITS Artificial Tears (Lacri-Lube Oph Oint) 1 appln QAM OPL 07/31/17 09:00 08/30/17 08:59 08/01/17 08:22 1 APPLN Insulin Glargine (Lantus Solostar Pen) 40 units DAILY SC 07/31/17 09:00 08/30/17 08:59 08/01/17 08:26 40 UNITS Risperidone (Risperdal Tab) 0.5 mg HS PO 07/30/17 21:00 08/29/17 20:59 08/01/17 20:58 0.5 MG Spironolactone (Aldactone Tab) 25 mg QAM PO 07/31/17 09:00 08/30/17 08:59 08/01/17 08:21 25 MG Glucose (Glucose 40% Gel) 15-30 GRAMS 15 GRAMS... UD PRN PO 07/30/17 16:00 08/29/17 15:59 Glucose (Glucose Chew Tab) 4-8 Tablets 4 Tabl... UD PRN PO 07/30/17 16:00 08/29/17 15:59 Dextrose (Dextrose 50% 50ML Syringe) 25-50ML OF 50% DW IV FOR... UD PRN IV 07/30/17 16:00 08/29/17 15:59 Glucagon (Glucagon Inj) 1 mg UD PRN SQ 07/30/17 16:00 08/29/17 15:59 Ipratropium [place] (Atrovent 0.02% 0.5MG/2.5ML Neb) 0.5 mg Q6R INH 07/30/17 21:00 08/29/17 20:59 08/02/17 06:57 0.5 MG Levalbuterol (Xopenex 1.25MG/ 0.5ML Neb) 1.25 mg Q6R INH 07/30/17 21:00 08/29/17 20:59 08/02/17 06:57 1.25 MG Clopidogrel Bisulfate (plAVix TAB) 75 mg QAM PO 08/01/17 09:00 08/31/17 08:59 08/01/17 08:22 75 MG Bumetanide (Bumex Tab) 1 mg QAM PO 08/01/17 09:00 08/31/17 08:59 08/01/17 08:22 1 MG Metoprolol Succinate (Toprol Xl Tab) 50 mg HS PO 08/01/17 21:00 08/31/17 20:59 08/01/17 20:58 50 MG Bumetanide 1 mg/ Syringe 4 ml @ 4 mls/min DAILY@ IV 08/01/17 17:00 08/31/17 16:59 08/01/17 16:06 4 MLS/MIN Nitroglycerin (Nitroglycerin 2% Oint) 1 inch Q6H EXT 08/01/17 14:00 08/31/17 13:59 08/02/17 02:25 1 INCH Scopolamine (Transderm-Scop Patch) 1.5 mg Q72H TD 08/01/17 18:00 08/31/17 17:59 08/01/17 18:38 1.5 MG Miscellaneous (Remove Transderm-Scop Patch) 1 ea Q72H N/A 08/04/17 18:00 09/03/17 17:59 Miscellaneous Information (Check Scopolamine Patch Placement) 1 ea QS N/A 08/02/17 00:00 09/01/17 00:00 08/02/17 07:33 1 EA Atropine Sulfate (Atropine Sulfate 1% Oph Soln) 4 drops Q4H PRN SL 08/01/17 18:00 08/31/17 17:59 Morphine Sulfate (MoRPHine SULFATE INJ) 1 mg Q1H PRN IV 08/01/17 18:00 08/15/17 17:59 08/02/17 07:15 1 MG Lorazepam (Ativan Inj) 0.5 mg Q4H PRN IV 08/01/17 18:00 08/31/17 17:59 Lorazepam 0.5 mg/ Syringe 1 ml @ 1 mls/min Q4H PRN IV 08/01/17 18:00 08/31/17 17:59 08/02/17 07:17 1 MLS/MIN Objective Vital Signs Date Time Temp Pulse Resp B/P (MAP) Pulse Ox O2 Delivery O2 Flow Rate FiO2 08/02/17 06:57 117 18 97 Nasal Cannula 2.0 08/02/17 02:35 118 145/78 (100) 08/02/17 01:59 78 18 93 08/02/17 00:00 Nasal Cannula 2.0 08/01/17 21:35 36.6 99 24 98 2.0 08/01/17 21:15 36.7 100 20 142/74 (96) 100 Nasal Cannula 2.0 08/01/17 20:00 Nasal Cannula 2.0 Oxymask 08/01/17 19:54 36.6 99 24 115/72 (86) 98 Nasal Cannula 2.0 08/01/17 19:25 96 18 99 Mask 2.0 08/01/17 16:00 Oxymask 2.0 08/01/17 15:27 36.5 91 24 152/78 (102) 98 Oxymask 3.5 08/01/17 14:16 77 18 97 BiPAP/CPAP 4.0 08/01/17 14:16 77 97 4.0 08/01/17 13:47 36.5 93 20 147/83 (104) 96 Nasal Cannula 2.0 08/01/17 13:00 77 97 4.0 08/01/17 12:00 Nasal Cannula 2.0 08/01/17 08:00 Nasal Cannula 2.0 Physical Exam Comments: General Appearance: + mild distress, + obese, + pertinent finding (using accesory muscles to breath) Neck: supple, no adenopathy Respiratory/Chest: + decreased breath sounds, + accessory muscle use, + rales Cardiovascular: regular rate, rhythm, no murmur Abdomen: normal bowel sounds, non tender, soft Extremities: + pedal edema Skin: normal color Lymphatic: no adenopathy Laboratory Results Last 24 Hours Test 08/01/17 07:57 08/01/17 11:25 08/01/17 16:37 08/01/17 21:04 Activated Partial Thromboplast Time 69.9 SECONDS Partial Thromboplastin Ratio 2.7 Bedside Glucose 201 mg/dl 202 mg/dl 157 mg/dl Assessment and Plan Acute NSTEMI while hospitalized for another issue in a 81 yo male with h/o SEVERE CKD, DM2, grade 1 diastolic dysfucntion Patient initially brought in for edema in his lower extremities. Patient is currently comfort measures as he has multiple comorbidities and acute issues as noted below which include his NSTEMI, ESRD. CURRENTLY on morphine q1h for SOB, scopolamine patch. 1. NSTEMI likely secondary to plaque rupture Troponin elevated to 30. Patient did have an Echocardiogram on the . Normal LV and Grade 1 diastolic dysfunction. However, this appears to have been prior to this new event. Will obtain a repeat limited 2d echo as patients troponin and CKMB is significantly elevated. Echo results still pending, however will not change house attendant at this point. Patient no longer on statin, or heparin drip due to bleeding and fact patient is now comfort measures. Cont. plavix, beta hira ASA. 2. Tachypnea likely secondary to Acute Diastolic CHF, may have new systolic dysfunction will cont. diuretics as this will not improve mortality. However, on 2L NC. continue spironolactone 25 mg daily continue weight and Is and Os 3. CKD Stage V - No Dialysis: - Patient was previously on hospice services in 2014 due to end-stage renal disease however creatinine began to improve and the decision to stop hospice services was implemented - discussed current kidney function and current findings of NSTEMI and sister reinforces that patient will not receive dialysis and would like to continue medical management and optimize kidney function as best as possible - Limited labs to truly kalani his baseline function - however creatinine has been as high as the 4s which we are nearing - may need to consider nephrology consultation for recommendations to try and optimize his kidney function and the most conservative measure possible T2DM wit Hyperglycemia: - Continue Lantus and SSI Paranoid Schizophrenia: STABLE - Risperdal 0.5 mg HS DVT Prophylaxis: Heparin drip Code Status: DO NOT RESUSCITATE, Comfort measures, will consult palliative care after Holiday. Continued [facility] stay due to: multiple IV medications needed [facility]charge planning[facility]
[2017-08-02 08:00] VITALS: O2SAT 95
[2017-08-02] MEDS: INSULIN GLARGINE SOLOSTAR 100 UNITS/ML 3 ML PEN SC SCH (08:00)
[2017-08-02] MEDS: INSULIN ASPART 100 UNITS/ML 3 ML PEN SC SCH ×3 (08:08→16:30)
[2017-08-02] MEDS: BUMETANIDE IV 1 MG in SYRINGE 0 ML IV SCH ×2 (08:09→17:00)
[2017-08-02] MEDS: ARTIFICIAL TEARS OP OINT 3.5 GM TUBE OPL SCH (08:19)
--- NOTE | 2017-08-02 09:56 | ECHOCARDIOGRAM REPORT ---
*NOTICE TO RECEIVING CONSTITUTION PARTY AGENCY This information is strictly Confidential and protected under [place] law. [place] law prohibits you from making any further disclosure of this information unless further disclosure is expressly permitted by the written consent of the person to whom it pertains or is authorized by law. A general authorization for the release of medical or other information is not sufficient for this purpose. Hospital accepts no responsibility if the information is made available to any other person, INCLUDING THE PATIENT. Interpretation Summary * Name: MARY ANNE VALLE Study Date: 08/01/2017 03:10 PM BP: 145/75 mmHg * Patient Location: C.2T\S\S239\S\2 HR: 95 * : 1935 (M/d/) Gender: Male Height: 69 in * Age: 81 yrs Ethnicity: CA Weight: 246 lb * Ordering Physician: John Newell * Performed By: Savannah Milan RDCS * * Reason For Study: New NSTEMI compare to echo on 07/30/17 * BSA: 2.3 m2 * -- Conclusions -- * The left ventricle is grossly normal size. * There is mild concentric left ventricular hypertrophy. * There is mild LV dysfunction. * LVEF 40% * The inferolateral, basal to mid inferior, inferoseptum and apex are severely hypokinetic. * Limited echo for LV function and wall motion Procedure Details * Limited views were obtained. * The study was technically difficult. * The study was technically difficult, but visualization was adequate with the administration of Definity ultrasound contrast. * There were technical limitations due to patient'spoor positioning * A contrast injection of Definity was performed to improve assessment of LV function. * Contrast was injected into an intravenous site in the right arm. * One vial of Definity ultrasound contrast was diluted in normal saline to a total volume of 10 ml. A total of '2' ml of solution was administered during imaging. * Lot # [id number] of Definity utilized for procedure. * Expiration date . * The attending nurse who injected the contrast agent was Jaclyn Nolen RN. Left Ventricle * The left ventricle is grossly normal size. * There is mild concentric left ventricular hypertrophy. * There is mild LV dysfunction. LVEF 40% The inferolateral, basal to mid inferior, inferoseptum and apex are severely hypokinetic. Mitral Valve * The mitral valve is grossly normal. Aortic Valve * The aortic valve is trileaflet. MMode 2D Measurements and Calculations IVSd 1.2 cm IVSs 1.6 cm LVIDd 4.6 cm LVIDs 3.4 cm LVPWd 1.5 cm LVPWs 1.8 cm IVS/LVPW 0.81 FS 25.0 % EDV(Teich) 96.9 ml ESV(Teich) 48.9 ml EF(Teich) 49.5 % EDV(cubed) 96.8 ml ESV(cubed) 40.8 ml EF(cubed) 57.8 % % IVS thick 30.8 % % LVPW thick 21.7 % LV mass(C)d 245.1 grams LV mass(C)dI 108.7 grams/m\S\2 LV mass(C)s 235.6 grams LV mass(C)sI 104.5 grams/m\S\2 SV(Teich) 48.0 ml SI(Teich) 21.3 ml/m\S\2 SV(cubed) 55.9 ml SI(cubed) 24.8 ml/m\S\2 LA dimension 3.6 cm LVAd ap4 20.9 cm\S\2 LVLd ap4 6.9 cm EDV(MOD-sp4) 53.1 ml EDV(sp4-el) 53.6 ml LVAs ap4 15.2 cm\S\2 LVLs ap4 6.8 cm ESV(MOD-sp4) 29.5 ml ESV(sp4-el) 28.7 ml EF(MOD-sp4) 44.3 % EF(sp4-el) 46.5 % LVAd ap2 34.7 cm\S\2 LVLd ap2 8.6 cm EDV(MOD-sp2) 117.4 ml EDV(sp2-el) 119.5 ml LVAs ap2 24.2 cm\S\2 LVLs ap2 8.1 cm ESV(MOD-sp2) 62.5 ml ESV(sp2-el) 61.3 ml EF(MOD-sp2) 46.7 % EF(sp2-el) 48.7 % LVLd %diff 19.2 % EDV(MOD-bp) 87.6 ml LVLs %diff 15.9 % ESV(MOD-bp) 45.8 ml EF(MOD-bp) 47.7 % SV(MOD-sp4) 23.5 ml SI(MOD-sp4) 10.4 ml/m\S\2 SV(MOD-sp2) 54.8 ml SI(MOD-sp2) 24.3 ml/m\S\2 SV(MOD-bp) 41.8 ml SI(MOD-bp) 18.5 ml/m\S\2 SV(sp4-el) 24.9 ml SI(sp4-el) 11.1 ml/m\S\2 SV(sp2-el) 58.2 ml SI(sp2-el) 25.8 ml/m\S\2
[2017-08-02 14:25] VITALS: PULSE 113; O2SAT 92
--- NOTE | 2017-08-02 17:12 | Death Summary ---
Summary of Admission Date Jul 30, 2017 at 13:52 Date & Time of Aug 02, 2017. 1640 Cause of Respiratory failure secondary to Volume overload secondary to ESRD secondary to refusal for Hemodialysis Hospital Course Patient was hospitalized with CHF exacerbation with h/o Severe CKD, DM2, Grade 1 diastolic dysfunction During hospital stay patient suffered from NSTEMI likely from plaque rupture Cardio was consulted. Patient was placed on anticoaguation but his SOB was worsening. Patient was not diuresing despite diuretic use. Patient was then refusing BIPAP. Patient also refused hemodialysis. Discussed case with sister who was POA as well as patient. Patient was changed to comfort measures on the 01 of August, as he was not improving despite medical management. This was likely due to his multiple comorbidities especially his ESRD. Patient was on morphine q1h for SOB, scopolamine patch for comfort. Patient as stated above. I examined patient and confirmed no heart beat no respiratory movement no pupillary response. No gag reflex. Patient was pronounced and family was informed. No autopsy as per family. Copy To Dulce Maria Agustin C.[email or web address]
== END 2017-08-02 19:57 | disposition expired ==
LOC: EDBD 10:14 → C.EDC 10:17 → C.2T 13:52 → ENRESERV 14:21 → C.MS4W 08-01 22:03
PROVIDERS: ADMIT Internal Medicine; ATTEND Internal Medicine Sports Medicine
DX: I50.33 Acute on chronic diastolic (congestive) heart failure (principal); I21.4 Non-ST elevation (NSTEMI) myocardial infarction; N18.6 End stage renal disease; I13.0 Hypertensive heart and chronic kidney disease with heart failure and stage 1 through stage 4 chronic kidney disease, or unspecified chronic kidney disease; F20.0 Paranoid schizophrenia; E11.65 Type 2 diabetes mellitus with hyperglycemia; E11.22 Type 2 diabetes mellitus with diabetic chronic kidney disease; I73.9 Peripheral vascular disease, unspecified; E78.5 Hyperlipidemia, unspecified; E66.3 Overweight; Z51.81 Encounter for therapeutic drug level monitoring; Z79.899 Other long term (current) drug therapy; Z79.4 Long term (current) use of insulin; Z66 Do not resuscitate; Z68.36 Body mass index [BMI] 36.0-36.9, adult; Z87.891 Personal history of nicotine dependence